=== PATIENT | male | born 1930 | race Caucasian/White ===

== ENCOUNTER 2016-08-09 14:30 | Observation (INO) | payer OTHER, MEDICAID ==
--- NOTE | 2016-08-09 14:38 | DR.GENAD ---
HPI - HPI Comment HPI Comment: Complaint of weakness and diarrhea. omset yesterday. recently hospitalized for PE in [place] put in rehab then went home. Lives alone. - Nurses notes reviewed Nurses Notes Review: Yes - Source History Provided: Patient - Mode of Arrival Mode of Arrival: EMS - Timing Onset of Chief Complaint: 08/08/16 - Duration Duration: Constant How lon Duration: Days - Location Location: generalized - Severity Severity: Moderate - Modifying Factors Worsens:: diarrhea PMH - PMH Past Medical History: Arthritis, CHF, Coronary Artery Disease, Dyslipidemia Past Surgical History: Yes Surgical History: CABG/Valve Surgery - Social History Do you use any recreational Drugs:: No ROS - Review of Systems Constitutional: No Symptoms Reported Eyes: No Symptoms Reported ENTM: No Symptoms Reported Respiratoy: No Symptoms Reported Cardiovascular: No Symptoms Reported Gastrointestinal/Abdominal: Diarrhea Genitourinary: No Symptoms Reported Neurological: Weakness Musculoskeletal: No Symptoms Reported Integumentary: No Symptoms Reported Hematologic/Lymphatic: No Symptoms Reported Endocrine: No Symptoms Reported Psychiatric: No Symptoms Reported PE - Vital Signs Vitals: Temperature 97.4 F Pulse Rate 118 Respiratory Rate 18 Blood Pressure 133/79 O2 Sat by Pulse Oximetry 94 - General Limitations: No Limitations General Appearance: Alert, In No Apparent Distress - Head Head Exam: Normal Inspection - Eyes Eye exam: EOMI. negative: Scleral Icterus, Conjunctival Injection - ENT ENT Exam: Mucous Membranes Dry External Ear Exam: Normal External Inspection Mouth Exam: Normal Inspection Throat Exam: Normal Inspection - Neck Neck Exam: Normal Inspection, Full ROM, Trachea Midline - Chest Chest Inspection: Normal Inspection - Respiratory Respiratory Exam: Normal Lung Sounds Bilat. negative: Accessory Muscle Use, Respiratory Distress Respiratory Exam: Bilateral Clear to Auscultation - Cardiovascular Cardiovascular Exam: Tachycardia - Abdominal Exam Abdominal Exam: Normal Inspection, Normal Bowel Sounds, Soft. negative: Distention, Tenderness, Guarding - Extremities Extremities Exam: Normal Inspection - Neurologic Neurological Exam: Alert, CN II-XII Intact - Psychiatric Psychiatric Exam: Depressed - Skin Skin Exam: Intact, Normal Color Course - Consultation Called: 18:00 Call Returned: 18:08 Consultation Comments: CASE DISCUSSED WITH DR. XIONG ADMIT FOR IVF AND POTASSIUM ROR - Labs Reviewed Result Diagrams: 08/09/16 15:10 08/09/16 15:10 Laboratory: WBC 8.9 X10^3/uL (3.6-10.0) 08/09/16 15:10 RBC 4.26 X10^6/uL (4.7-6.0) L 08/09/16 15:10 Hgb 12.8 g/dL (13.5-18.0) L 08/09/16 15:10 Hct 36.8 % (42.0-54.0) L 08/09/16 15:10 MCV 86.5 fL (80.0-100.0) 08/09/16 15:10 MCH 30.0 pg (27.0-34.0) 08/09/16 15:10 MCHC 34.7 g/dL (33.0-35.0) 08/09/16 15:10 RDW 17.8 % (11.6-16.5) H 08/09/16 15:10 Plt Count 327 X10^3/uL (150.0-450.0) 08/09/16 15:10 Plt Count Comment Adequate (ADEQUATE) 08/09/16 15:10 MPV 7.8 fL (7.4-11.0) 08/09/16 15:10 Neut % 77.1 % (42.0-75.0) H 08/09/16 15:10 Lymph % 14.7 % (21.0-51.0) L 08/09/16 15:10 [place] % 7.0 % (0.0-13.0) 08/09/16 15:10 Eos % 0.6 % (0.9-2.9) L 08/09/16 15:10 Baso % 0.6 % (0.2-1.0) 08/09/16 15:10 Neut # 6.9 x10^3/uL (2.2-4.8) H 08/09/16 15:10 Lymph # 1.3 X10^3/uL (1.3-2.9) 08/09/16 15:10 [place] # 0.6 x10^3/uL (0.3-0.8) 08/09/16 15:10 Eos # 0.1 x10^3/uL (0.0-0.2) 08/09/16 15:10 Baso # 0.1 X10^3/uL (0.0-0.1) 08/09/16 15:10 Absolute Nucleated RBC 0.0 /100WBC 08/09/16 15:10 Total Counted 100 08/09/16 15:10 Neutrophils % (Manual) 81 % (39-76) H 08/09/16 15:10 Band Neutrophils % 1 % (0-10) 08/09/16 15:10 Lymphocytes % (Manual) 12 % (13-43) L 08/09/16 15:10 Monocytes % (Manual) 4 % (4-9) 08/09/16 15:10 Eosinophils % (Manual) 1 % (0-6) 08/09/16 15:10 Basophils % (Manual) 1 % (0-1) 08/09/16 15:10 Plt Morphology Comment Normal (NORMAL) 08/09/16 15:10 RBC Morphology Abnormal (NORMAL) 08/09/16 15:10 Poikilocytosis 1+ A 08/09/16 15:10 Anisocytosis 1+ A 08/09/16 15:10 Crenated Cell 1+ A 08/09/16 15:10 Sodium 140 mmol/L (136-145) 08/09/16 15:10 Corrected Sodium 142 mmol/L (136-145) 08/09/16 15:10 Potassium 3.4 mmol/L (3.5-5.1) L 08/09/16 15:10 Chloride 99 mmol/L (98-107) 08/09/16 15:10 Carbon Dioxide 29.0 mmol/L (21-32) 08/09/16 15:10 BUN 18 mg/dL (7-18) 08/09/16 15:10 Creatinine 1.91 mg/dL (0.70-1.30) H 08/09/16 15:10 Est GFR (MDRD) Af Amer 43 (>60) L 08/09/16 15:10 Est GFR (MDRD) Non-Af 36 (>60) L 08/09/16 15:10 Glucose 182 mg/dL (65-99) H 08/09/16 15:10 Lactic Acid 2.4 mmol/L (0.4-2.0) H 08/09/16 15:45 Calcium 9.4 mg/dL (8.5-10.1) 08/09/16 15:10 Corrected Calcium 10.4 mg/dL (8.5-10.1) H 08/09/16 15:10 Total Bilirubin 0.70 mg/dL (0.2-1.0) 08/09/16 15:10 AST 33 Units/L (15-37) 08/09/16 15:10 ALT 45 Units/L (12-78) 08/09/16 15:10 Alkaline Phosphatase 174 Units/L (46-116) H 08/09/16 15:10 Total Protein 7.4 g/dL (6.4-8.2) 08/09/16 15:10 Albumin 2.8 g/dL (3.4-5.0) L 08/09/16 15:10 Globulin 4.6 g/dL (2.5-4.5) H 08/09/16 15:10 Albumin/Globulin Ratio 0.6 Ratio (1.1-2.1) L 08/09/16 15:10 Specimen Type Catherized urine 08/09/16 17:16 Urine Color Dark yellow (YELLOW) 08/09/16 17:16 Urine Appearance Clear (CLEAR) 08/09/16 17:16 Urine pH 6.0 (5.0 - 8.0) 08/09/16 17:16 Ur Specific [place] 1.010 (1.000-1.030) 08/09/16 17:16 Urine Protein 2+ (NEGATIVE) 08/09/16 17:16 Urine Glucose (UA) Negative (NEGATIVE) 08/09/16 17:16 Urine Ketones Negative (NEGATIVE) 08/09/16 17:16 Urine Occult Blood 1+ (NEGATIVE) 08/09/16 17:16 Urine Nitrite Negative (NEGATIVE) 08/09/16 17:16 Urine Bilirubin 1+ (NEGATIVE) 08/09/16 17:16 Urine Urobilinogen 1+ (NORMAL) 08/09/16 17:16 Ur Leukocyte Esterase 1+ (NEGATIVE) 08/09/16 17:16 Urine RBC 0-3 /HPF (NEGATIVE) 08/09/16 17:16 Urine WBC 0-2 /HPF (NEGATIVE) 08/09/16 17:16 Ur Squamous Epith Cells Rare /HPF (NEGATIVE) 08/09/16 17:16 Amorphous Sediment Trace /HPF (NEGATIVE) 08/09/16 17:16 Urine Bacteria Trace /HPF (NEGATIVE) 08/09/16 17:16 Urine Mucus Rare /HPF (NEGATIVE) 08/09/16 17:16 Ur Culture Indicated? No/not indicated 08/09/16 17:16 - XRAY XRAY Interpreted by: Radiologist XRAY Findings: cHEST: nad - EKG Rate: 106 [place]: Normal Rhythm: ST Block: None ST: Nonsp - Diagnosis Discharge Problem: Hypokalemia Diarrhea Qualifiers: Diarrhea type: unspecified type Qualified Code(s): R19.7 - Diarrhea, unspecified - Discharge Plan Condition: Stable - Follow ups/Referrals Follow ups/Referrals: KHOI WATERS [Primary Care Provider] - 3 days - Instructions
[2016-08-09] MEDS ORDERED: NS 500 ML IV 500 ML IV ONE (15:29)
[2016-08-09] MEDS ORDERED: NS 1000 ML 1,000 ML ONE (15:36)
[2016-08-09 15:41] LABS: BASOPHILS # (AUTO) 0.1 X10^3/uL (0.0-0.1); BASOPHILS % (AUTO) 0.6 % (0.2-1.0); EOSINOPHILS # (AUTO) 0.1 x10^3/uL (0.0-0.2); EOSINOPHILS % (AUTO) 0.6 % (0.9-2.9); HEMATOCRIT 36.8 % (42.0-54.0); HEMOGLOBIN 12.8 g/dL (13.5-18.0); LYMPHOCYTES # (AUTO) 1.3 X10^3/uL (1.3-2.9); LYMPHOCYTES % (AUTO) 14.7 % (21.0-51.0); MEAN CORPUSCULAR HGB CONC 34.7 g/dL (33.0-35.0); MEAN CORPUSCULAR VOLUME 86.5 fL (80.0-100.0); MEAN PLATELET VOLUME 7.8 fL (7.4-11.0); MONOCYTES # (AUTO) 0.6 x10^3/uL (0.3-0.8); NEUTROPHILS # (AUTO) 6.9 x10^3/uL (2.2-4.8); NEUTROPHILS % (AUTO) 77.1 % (42.0-75.0); PLATELET COUNT 327 X10^3/uL (150.0-450.0); RED BLOOD COUNT 4.26 X10^6/uL (4.7-6.0); RED CELL DISTRIBUTION WIDTH 17.8 % (11.6-16.5); WHITE BLOOD COUNT 8.9 X10^3/uL (3.6-10.0)
[2016-08-09 15:45] LABS: ALBUMIN 2.8 g/dL (3.4-5.0); CALCIUM 9.4 mg/dL (8.5-10.1); COR CA(FOR HYPOALB) 10.4 mg/dL (8.5-10.1); CREATININE 1.91 mg/dL (0.70-1.30); TOTAL PROTEIN 7.4 g/dL (6.4-8.2)
[2016-08-09 16:02] LABS: BAND NEUTROPHILS % 1 % (0-10); BASOPHILS % (MANUAL) 1 % (0-1); PLATELET MORPHOLOGY COMMENT NORMAL (NORMAL)
[2016-08-09 16:03] LABS: ANISOCYTOSIS 1+; CRENATED RBC 1+; POIKILOCYTOSIS 1+
[2016-08-09] MEDS ORDERED: MICRO K EXTEN CAP 10 MEQ PO ONE ×2 (16:17→17:25)
--- NOTE | 2016-08-09 16:25 | RAD ---
HISTORY: Weakness and shortness of breath Study: Portable chest Comparison: December 2011 Findings: The trachea is midline. The cardiac silhouette is normal status post old sternotomy. The aorta is m ildly tortuous.. The lungs are clear without focal infiltrate or effusion. The bony thorax is unre markable. IMPRESSION: 1. No acute cardiopulmonary disease. Reported By:
[2016-08-09] MEDS ORDERED: POTASSIUM CHLORIDE LIQ 20 MEQ UDC ONE (17:28)
[2016-08-09] MEDS ORDERED: POTASSIUM CHLORIDE LIQ 20 MEQ UDC PO ONE (17:29)
[2016-08-09 17:33] LABS: BILIRUBIN,URINE 1+ (NEGATIVE); BLOOD/HEMOGLOBIN,URINE 1+ (NEGATIVE); GLUCOSE, URINE NEGATIVE (NEGATIVE); KETONES,URINE NEGATIVE (NEGATIVE); LEUKOCYTE ESTERASE ,URINE 1+ (NEGATIVE); NITRITES,URINE NEGATIVE (NEGATIVE); PROTEIN,URINE 2+ (NEGATIVE); UROBILINOGEN,URINE 1+ (NORMAL)
[2016-08-09 17:42] LABS: AMORPHOUS SEDIMENT,UR TRACE /HPF (NEGATIVE); APPEARANCE,URINE CLEAR (CLEAR); BACTERIA,URINE TRACE /HPF (NEGATIVE); COLOR,URINE DARK YELLOW (YELLOW); MUCUS,URINE RARE /HPF (NEGATIVE); RBC,URINE 0-3 /HPF (NEGATIVE); SQUAMOUS EPITHELIAL CELL,UR RARE /HPF (NEGATIVE)
[2016-08-09] MEDS ORDERED: ZOFRAN INJ 4 MG VIAL IVP PRN (18:19)
[2016-08-09] MEDS: NS 1000 ML 1,000 ML IV SCH (20:13)
[2016-08-09] MEDS ORDERED: [UNRECOGNIZED DRUG - OTHER] PO SCH (21:00)
[2016-08-09] MEDS ORDERED: [UNRECOGNIZED DRUG - OTHER] PO SCH (21:00)
[2016-08-09] MEDS: PREDNISONE TAB 5 MG PO SCH (21:20)
[2016-08-09] MEDS: ATIVAN TAB 0.5 MG PO SCH (21:21)
[2016-08-09] MEDS: ZYLOPRIM PO SCH (21:21)
[2016-08-09 21:57] VITALS: BMI 32.1
[2016-08-09] MEDS ORDERED: BUTT CREAM (COMPOUND) TOP PRN (23:39)
[2016-08-10] MEDS: ATIVAN TAB 0.5 MG PO SCH ×3 (05:39→21:44)
[2016-08-10 06:29] LABS: ALBUMIN 2.3 g/dL (3.4-5.0); CALCIUM 8.5 mg/dL (8.5-10.1); CARBON DIOXIDE 29.1 mmol/L (21-32); COR CA(FOR HYPOALB) 9.9 mg/dL (8.5-10.1); CREATININE 1.52 mg/dL (0.70-1.30); TOTAL PROTEIN 6.2 g/dL (6.4-8.2)
[2016-08-10] MEDS: NS 1000 ML 1,000 ML IV SCH ×2 (10:07→21:43)
[2016-08-10] MEDS: PREDNISONE TAB 5 MG PO SCH ×2 (10:08→21:44)
[2016-08-10] MEDS: ASPIRIN 81 MG CHEWTAB PO SCH ×2 (10:08→16:58)
[2016-08-10] MEDS: PRILOSEC PO SCH (10:08)
[2016-08-10] MEDS: ZYLOPRIM PO SCH ×2 (10:08→21:44)
[2016-08-10] MEDS: PATIENT'S HOME MEDICATION RESPIRATORY (Oxybutynin Chloride [Ditropan Xl] 10 MG) PO SCH (10:09)
[2016-08-10] MEDS: TOPROL XL PO SCH (16:21)
[2016-08-10] MEDS: ZANTAC PO SCH (16:21)
[2016-08-10] MEDS: K-DUR TAB 20 MEQ PO SCH (16:21)
[2016-08-10] MEDS: COUMADIN TAB 5 MG PO SCH (17:48)
[2016-08-10] MEDS: REQUIP PO SCH (21:44)
[2016-08-10] MEDS: NORCO 5/325 MG TAB PO PRN (21:44)
[2016-08-11] MEDS: ATIVAN TAB 0.5 MG PO SCH ×3 (05:34→22:03)
[2016-08-11] MEDS: NS 1000 ML 1,000 ML IV SCH ×2 (05:34→14:48)
[2016-08-11 06:21] LABS: BASOPHILS % (AUTO) 0.7 % (0.2-1.0); EOSINOPHILS # (AUTO) 0.1 x10^3/uL (0.0-0.2); EOSINOPHILS % (AUTO) 0.8 % (0.9-2.9); HEMATOCRIT 29.4 % (42.0-54.0); HEMOGLOBIN 10.1 g/dL (13.5-18.0); LYMPHOCYTES # (AUTO) 0.9 X10^3/uL (1.3-2.9); LYMPHOCYTES % (AUTO) 13.5 % (21.0-51.0); MEAN CORPUSCULAR HEMOGLOBIN 29.9 pg (27.0-34.0); MEAN CORPUSCULAR HGB CONC 34.3 g/dL (33.0-35.0); MEAN CORPUSCULAR VOLUME 87.3 fL (80.0-100.0); MEAN PLATELET VOLUME 8.1 fL (7.4-11.0); MONOCYTES # (AUTO) 0.5 x10^3/uL (0.3-0.8); MONOCYTES % (AUTO) 7.7 % (0.0-13.0); NEUTROPHILS # (AUTO) 5.2 x10^3/uL (2.2-4.8); NEUTROPHILS % (AUTO) 77.3 % (42.0-75.0); PLATELET COUNT 216 X10^3/uL (150.0-450.0); RED BLOOD COUNT 3.36 X10^6/uL (4.7-6.0); RED CELL DISTRIBUTION WIDTH 17.4 % (11.6-16.5); WHITE BLOOD COUNT 6.7 X10^3/uL (3.6-10.0)
[2016-08-11 06:34] LABS: ALANINE AMINOTRANSFERASE 31 Units/L (12-78); ALBUMIN 2.1 g/dL (3.4-5.0); ALKALINE PHOSPHATASE 121 Units/L (46-116); ASPARTATE AMINO TRANSFERASE 25 Units/L (15-37); BLOOD UREA NITROGEN 13 mg/dL (7-18); CARBON DIOXIDE 28.6 mmol/L (21-32); CHLORIDE 109 mmol/L (98-107); COR CA(FOR HYPOALB) 9.5 mg/dL (8.5-10.1); COR NA(FOR HYPERGLY) 145 mmol/L (136-145); CREATININE 1.25 mg/dL (0.70-1.30); GLUCOSE 139 mg/dL (65-99); SODIUM 144 mmol/L (136-145); TOTAL PROTEIN 5.1 g/dL (6.4-8.2); eGFR BLACK RACES > 60 (>60); eGFR NON BLACK RACES 58 (>60)
[2016-08-11] MEDS: ZANTAC PO SCH (09:37)
[2016-08-11] MEDS: K-DUR TAB 20 MEQ PO SCH (09:38)
[2016-08-11] MEDS: PREDNISONE TAB 5 MG PO SCH ×2 (09:38→22:03)
[2016-08-11] MEDS: TOPROL XL PO SCH (09:38)
[2016-08-11] MEDS: COUMADIN TAB 5 MG PO SCH (09:38)
[2016-08-11] MEDS: ZYLOPRIM PO SCH ×2 (09:38→22:02)
[2016-08-11] MEDS: PRILOSEC PO SCH (09:38)
[2016-08-11] MEDS: ASPIRIN 81 MG CHEWTAB PO SCH ×2 (09:38)
[2016-08-11] MEDS: PATIENT'S HOME MEDICATION RESPIRATORY (Oxybutynin Chloride [Ditropan Xl] 10 MG) PO SCH (09:39)
[2016-08-11] MEDS: REQUIP PO SCH (22:02)
[2016-08-11] MEDS: NORCO 5/325 MG TAB PO PRN (22:02)
[2016-08-12] MEDS: ATIVAN TAB 0.5 MG PO SCH ×2 (05:45→14:33)
[2016-08-12] MEDS: NS 1000 ML 1,000 ML IV SCH ×2 (05:45→14:45)
[2016-08-12 06:38] LABS: BLOOD UREA NITROGEN 15 mg/dL (7-18); CALCIUM 8.6 mg/dL (8.5-10.1); CARBON DIOXIDE 24.8 mmol/L (21-32); CHLORIDE 109 mmol/L (98-107); COR NA(FOR HYPERGLY) 143 mmol/L (136-145); GLUCOSE 115 mg/dL (65-99); SODIUM 143 mmol/L (136-145); eGFR BLACK RACES > 60 (>60); eGFR NON BLACK RACES > 60 (>60)
[2016-08-12 07:16] LABS: BASOPHILS % (AUTO) 0.5 % (0.2-1.0); EOSINOPHILS # (AUTO) 0.2 x10^3/uL (0.0-0.2); EOSINOPHILS % (AUTO) 2.4 % (0.9-2.9); HEMATOCRIT 32.1 % (42.0-54.0); HEMOGLOBIN 10.7 g/dL (13.5-18.0); LYMPHOCYTES # (AUTO) 1.2 X10^3/uL (1.3-2.9); LYMPHOCYTES % (AUTO) 16.1 % (21.0-51.0); MEAN CORPUSCULAR HEMOGLOBIN 29.6 pg (27.0-34.0); MEAN CORPUSCULAR HGB CONC 33.3 g/dL (33.0-35.0); MEAN PLATELET VOLUME 8.1 fL (7.4-11.0); MONOCYTES # (AUTO) 0.6 x10^3/uL (0.3-0.8); MONOCYTES % (AUTO) 7.4 % (0.0-13.0); NEUTROPHILS # (AUTO) 5.5 x10^3/uL (2.2-4.8); NEUTROPHILS % (AUTO) 73.6 % (42.0-75.0); PLATELET COUNT 215 X10^3/uL (150.0-450.0); RED CELL DISTRIBUTION WIDTH 17.1 % (11.6-16.5); WHITE BLOOD COUNT 7.4 X10^3/uL (3.6-10.0)
[2016-08-12 08:08] LABS: PLATELET MORPHOLOGY COMMENT NORMAL (NORMAL)
[2016-08-12] MEDS: K-DUR TAB 20 MEQ PO SCH (09:32)
[2016-08-12] MEDS: ASPIRIN 81 MG CHEWTAB PO SCH ×2 (09:33→09:37)
[2016-08-12] MEDS: TOPROL XL PO SCH (09:33)
[2016-08-12] MEDS: PRILOSEC PO SCH (09:33)
[2016-08-12] MEDS: COUMADIN TAB 5 MG PO SCH (09:33)
[2016-08-12] MEDS: ZYLOPRIM PO SCH (09:33)
[2016-08-12] MEDS: ZANTAC PO SCH (09:33)
[2016-08-12] MEDS: PREDNISONE TAB 5 MG PO SCH (09:33)
[2016-08-12] MEDS: PATIENT'S HOME MEDICATION RESPIRATORY (Oxybutynin Chloride [Ditropan Xl] 10 MG) PO SCH (09:37)
[2016-08-12 15:37] VITALS: BP 166/76
== END 2016-08-12 16:25 | disposition home or self-care (01) ==
LOC: ER 14:54 → MED/SURG 18:46
PROVIDERS: ADMIT Internal Medicine; ATTEND Internal Medicine
DX: R19.7 Diarrhea, unspecified (principal); E87.6 Hypokalemia; E86.0 Dehydration; R53.1 Weakness; M13.89 Other specified arthritis, multiple sites; I50.9 Heart failure, unspecified; I25.10 Atherosclerotic heart disease of native coronary artery without angina pectoris; E78.2 Mixed hyperlipidemia; R06.02 Shortness of breath; R94.31 Abnormal electrocardiogram [ECG] [EKG]; D64.89 Other specified anemias; R79.1 Abnormal coagulation profile; R94.4 Abnormal results of kidney function studies; R73.09 Other abnormal glucose; A04.7 Enterocolitis due to Clostridium difficile; R26.89 Other abnormalities of gait and mobility
CPT/HCPCS: 36415; 51702; 71010; 80048; 80053; 81001; 83605; 85025; 85610; 87205; 87493; 93005; 93010; 94760; 96365; 96367; 97535; 99284; A4216; A4222; G8978; G8979; G8987; G8988; G0378; J7506

== ENCOUNTER 2016-08-14 13:32 | Emergency (ER) | payer OTHER, MEDICAID ==
[2016-08-14 14:18] LABS: BILIRUBIN,URINE NEGATIVE (NEGATIVE); BLOOD/HEMOGLOBIN,URINE 5+ (NEGATIVE); GLUCOSE, URINE NEGATIVE (NEGATIVE); KETONES,URINE NEGATIVE (NEGATIVE); LEUKOCYTE ESTERASE ,URINE 2+ (NEGATIVE); NITRITES,URINE NEGATIVE (NEGATIVE); PROTEIN,URINE 4+ (NEGATIVE); UROBILINOGEN,URINE NORMAL (NORMAL)
[2016-08-14 14:28] LABS: APPEARANCE,URINE CLOUDY (CLEAR); BACTERIA,URINE 4+ /HPF (NEGATIVE); COLOR,URINE RED (YELLOW); RBC,URINE TNTC /HPF (NEGATIVE); SQUAMOUS EPITHELIAL CELL,UR RARE /HPF (NEGATIVE)
--- NOTE | 2016-08-14 14:45 | DR.UPM ---
HPI - Time Seen Time seen: 14:35 - PCP Primary Care Physician: JUAN - Complaint Chief Complaint Doctors Comments: Patient reports that he has been trying to get into a alf for some time now and has not had any success. His son has tried on several occassion he reports but has not been accepted. He went to [facility] with an attempt to get in a nursing but has no personal physician and he was diagnosed and treated for hemorrhagic cycstitis. He states that he has been treated for prostate cancer with radiation and needle injection. Chief Complaint:: PT. STATES HE IS HAVING A PROBLEM WITH CONSTIPATION AND HAS NOT HAD A BOWEL MOVEMENT SINCE YESTERDAY. PT. ALSO C/O URINARY RETENTION. PT. WAS SEEN IN [place] ER LAST NIGHT AND WAS D/C HOME. - Source History Provided: Patient, EMS - Mode of Arrival Mode of Arrival: EMS - Timing Onset of Chief Complaint: 08/13/16 PMH - PMH Past Medical History: Yes Past Medical History: Arthritis, CHF, Coronary Artery Disease, Dyslipidemia Past Medical History Comment: PROSTATE CANCER Past Surgical History: Yes Surgical History: Appendectomy, CABG/Valve Surgery, Cholecystectomy - Family History History of Family Medical Conditions: No - Social History Does patient currently use any type of tobacco product: No Have you used tobacco products in the last 12 months: No Type of Tobacco Use: None Does any household member use tobacco: No Alcohol Use: None Do you use any recreational Drugs:: No Lives With: Alone Lives Where: Home - infectious screening In the last 2 months have you had wt loss of >10#?: NO Have you had fever, night sweats or hemotysis?: No Have you traveled outside the country in the last 6 months?: No Isolation: Standard ROS - Review of Systems Constitutional: No Symptoms Reported Eyes: No Symptoms Reported ENTM: No Symptoms Reported Respiratoy: No Symptoms Reported Cardiovascular: No Symptoms Reported Gastrointestinal/Abdominal: No Symptoms Reported Genitourinary: See HPI, Hematuria Neurological: No Symptoms Reported Musculoskeletal: No Symptoms Reported Integumentary: No Symptoms Reported Hematologic/Lymphatic: No Symptoms Reported Endocrine: No Symptoms Reported Psychiatric: No Symptoms Reported All Other Systems: Reviewed and Negative PE - Vital Signs Vitals: Temperature 97.3 F Pulse Rate 112 Respiratory Rate 22 Blood Pressure [Left Arm] 166/76 Blood Pressure [Right Arm] 140/66 Blood Pressure 185/95 O2 Sat by Pulse Oximetry 96 Course - Reevaluation 1st: Unchanged ROR - Labs Reviewed Result Diagrams: 08/14/16 15:15 08/14/16 15:15 Laboratory: WBC 12.3 X10^3/uL (3.6-10.0) H 08/14/16 15:15 RBC 4.26 X10^6/uL (4.7-6.0) L 08/14/16 15:15 Hgb 12.4 g/dL (13.5-18.0) L 08/14/16 15:15 Hct 37.3 % (42.0-54.0) L 08/14/16 15:15 MCV 87.5 fL (80.0-100.0) 08/14/16 15:15 MCH 29.2 pg (27.0-34.0) 08/14/16 15:15 MCHC 33.4 g/dL (33.0-35.0) 08/14/16 15:15 RDW 17.9 % (11.6-16.5) H 08/14/16 15:15 Plt Count 226 X10^3/uL (150.0-450.0) 08/14/16 15:15 Plt Count Comment Adequate (ADEQUATE) 08/14/16 15:15 MPV 7.8 fL (7.4-11.0) 08/14/16 15:15 Neut % 80.1 % (42.0-75.0) H 08/14/16 15:15 Lymph % 10.3 % (21.0-51.0) L 08/14/16 15:15 [place] % 7.7 % (0.0-13.0) 08/14/16 15:15 Eos % 0.9 % (0.9-2.9) 08/14/16 15:15 Baso % 1.0 % (0.2-1.0) 08/14/16 15:15 Neut # 9.8 x10^3/uL (2.2-4.8) H 08/14/16 15:15 Lymph # 1.3 X10^3/uL (1.3-2.9) 08/14/16 15:15 [place] # 0.9 x10^3/uL (0.3-0.8) H 08/14/16 15:15 Eos # 0.1 x10^3/uL (0.0-0.2) 08/14/16 15:15 Baso # 0.1 X10^3/uL (0.0-0.1) 08/14/16 15:15 Absolute Nucleated RBC 0.1 /100WBC 08/14/16 15:15 Total Counted 100 08/14/16 15:15 Neutrophils % (Manual) 74 % (39-76) 08/14/16 15:15 Band Neutrophils % 5 % (0-10) 08/14/16 15:15 Lymphocytes % (Manual) 17 % (13-43) 08/14/16 15:15 Monocytes % (Manual) 3 % (4-9) L 08/14/16 15:15 Eosinophils % (Manual) 1 % (0-6) 08/14/16 15:15 Plt Morphology Comment Normal (NORMAL) 08/14/16 15:15 RBC Morphology Abnormal (NORMAL) 08/14/16 15:15 Hypochromasia Slight A 08/14/16 15:15 Poikilocytosis Slight A 08/14/16 15:15 Anisocytosis Slight A 08/14/16 15:15 Sodium 142 mmol/L (136-145) 08/14/16 15:15 Corrected Sodium 142 mmol/L (136-145) 08/14/16 15:15 Potassium 4.0 mmol/L (3.5-5.1) 08/14/16 15:15 Chloride 105 mmol/L (98-107) 08/14/16 15:15 Carbon Dioxide 27.5 mmol/L (21-32) 08/14/16 15:15 BUN 25 mg/dL (7-18) H 08/14/16 15:15 Creatinine 1.61 mg/dL (0.70-1.30) H 08/14/16 15:15 Est GFR (MDRD) Af Amer 53 (>60) L 08/14/16 15:15 Est GFR (MDRD) Non-Af 43 (>60) L 08/14/16 15:15 Glucose 120 mg/dL (65-99) H 08/14/16 15:15 Calcium 9.0 mg/dL (8.5-10.1) 08/14/16 15:15 Corrected Calcium 9.9 mg/dL (8.5-10.1) 08/14/16 15:15 Total Bilirubin 0.70 mg/dL (0.2-1.0) 08/14/16 15:15 AST 30 Units/L (15-37) 08/14/16 15:15 ALT 41 Units/L (12-78) 08/14/16 15:15 Alkaline Phosphatase 158 Units/L (46-116) H 08/14/16 15:15 Total Protein 7.1 g/dL (6.4-8.2) 08/14/16 15:15 Albumin 2.9 g/dL (3.4-5.0) L 08/14/16 15:15 Globulin 4.2 g/dL (2.5-4.5) 08/14/16 15:15 Albumin/Globulin Ratio 0.7 Ratio (1.1-2.1) L 08/14/16 15:15 Specimen Type Clean catch urine 08/14/16 13:57 Urine Color Red (YELLOW) 08/14/16 13:57 Urine Appearance Cloudy (CLEAR) 08/14/16 13:57 Urine pH 7.0 (5.0 - 8.0) 08/14/16 13:57 Ur Specific [place] 1.010 (1.000-1.030) 08/14/16 13:57 Urine Protein 4+ (NEGATIVE) 08/14/16 13:57 Urine Glucose (UA) Negative (NEGATIVE) 08/14/16 13:57 Urine Ketones Negative (NEGATIVE) 08/14/16 13:57 Urine Occult Blood 5+ (NEGATIVE) 08/14/16 13:57 Urine Nitrite Negative (NEGATIVE) 08/14/16 13:57 Urine Bilirubin Negative (NEGATIVE) 08/14/16 13:57 Urine Urobilinogen Normal (NORMAL) 08/14/16 13:57 Ur Leukocyte Esterase 2+ (NEGATIVE) 08/14/16 13:57 Urine RBC Tntc /HPF (NEGATIVE) 08/14/16 13:57 Urine WBC 3-5 /HPF (NEGATIVE) 08/14/16 13:57 Ur Squamous Epith Cells Rare /HPF (NEGATIVE) 08/14/16 13:57 Urine Bacteria 4+ /HPF (NEGATIVE) 08/14/16 13:57 Ur Culture Indicated? Yes/culture set up 08/14/16 13:57 - XRAY XRAY Interpreted by: Radiologist (No acute cardiopulmonary disease.) - Diagnosis Discharge Problem: Hemorrhagic cystitis UTI (urinary tract infection) Qualifiers: Urinary tract infection type: acute cystitis Hematuria presence: with hematuria Qualified Code(s): N30.01 - Acute cystitis with hematuria - Discharge Plan Condition: Stable - Follow ups/Referrals Follow ups/Referrals: NATHALIE MARTINEZ [Primary Care Provider] - 3 days - Instructions
[2016-08-14] MEDS: NS 1000 ML 1,000 ML IV SCH (15:09)
--- NOTE | 2016-08-14 15:32 | RAD ---
HISTORY: Constipation and inability to void Study: Portable chest Comparison: August 09, 2016 Findings: The trachea is midline. The cardiac silhouette is prominent status post coronary artery bypass marni ting surgery. The aorta is tortuous.. The lungs are clear without focal infiltrate or effusion. Th e bony thorax is unremarkable. IMPRESSION: 1. No acute cardiopulmonary disease. Reported By:
[2016-08-14 15:33] LABS: BASOPHILS # (AUTO) 0.1 X10^3/uL (0.0-0.1); EOSINOPHILS # (AUTO) 0.1 x10^3/uL (0.0-0.2); EOSINOPHILS % (AUTO) 0.9 % (0.9-2.9); HEMATOCRIT 37.3 % (42.0-54.0); HEMOGLOBIN 12.4 g/dL (13.5-18.0); LYMPHOCYTES # (AUTO) 1.3 X10^3/uL (1.3-2.9); LYMPHOCYTES % (AUTO) 10.3 % (21.0-51.0); MEAN CORPUSCULAR HEMOGLOBIN 29.2 pg (27.0-34.0); MEAN CORPUSCULAR HGB CONC 33.4 g/dL (33.0-35.0); MEAN CORPUSCULAR VOLUME 87.5 fL (80.0-100.0); MEAN PLATELET VOLUME 7.8 fL (7.4-11.0); MONOCYTES # (AUTO) 0.9 x10^3/uL (0.3-0.8); MONOCYTES % (AUTO) 7.7 % (0.0-13.0); NEUTROPHILS # (AUTO) 9.8 x10^3/uL (2.2-4.8); NEUTROPHILS % (AUTO) 80.1 % (42.0-75.0); PLATELET COUNT 226 X10^3/uL (150.0-450.0); RED BLOOD COUNT 4.26 X10^6/uL (4.7-6.0); RED CELL DISTRIBUTION WIDTH 17.9 % (11.6-16.5); WHITE BLOOD COUNT 12.3 X10^3/uL (3.6-10.0)
[2016-08-14 15:47] LABS: ALBUMIN 2.9 g/dL (3.4-5.0); CARBON DIOXIDE 27.5 mmol/L (21-32); COR CA(FOR HYPOALB) 9.9 mg/dL (8.5-10.1); CREATININE 1.61 mg/dL (0.70-1.30); TOTAL PROTEIN 7.1 g/dL (6.4-8.2)
[2016-08-14 16:02] LABS: BAND NEUTROPHILS % 5 % (0-10)
[2016-08-14 16:03] LABS: PLATELET MORPHOLOGY COMMENT NORMAL (NORMAL)
[2016-08-14 16:04] LABS: ANISOCYTOSIS SLIGHT; HYPOCHROMASIA SLIGHT; POIKILOCYTOSIS SLIGHT
[2016-08-14] MEDS ORDERED: TYLENOL 500 MG TAB EXTRA STRENGTH PO PRN (17:48)
[2016-08-14] MEDS ORDERED: GENTAMICIN INJ 80 MG in NS 100 ML IV 100 ML IV ONE (17:48)
[2016-08-14] MEDS ORDERED: NS 1000 ML 1,000 ML IV SCH (18:00)
[2016-08-14] MEDS ORDERED: ZANTAC PO SCH (18:00)
[2016-08-14] MEDS ORDERED: CATAPRES TAB 0.1 MG ONE (18:18)
[2016-08-14] MEDS ORDERED: CATAPRES TAB 0.1 MG PO ONE (18:19)
[2016-08-14] MEDS ORDERED: GENTAMICIN INJ ONE (19:56)
[2016-08-14] MEDS ORDERED: NS 100 ML IV 100 ML IV ONE (19:56)
[2016-08-14] MEDS ORDERED: BUTT CREAM (COMPOUND) TOP PRN (20:00)
[2016-08-14] MEDS: REQUIP PO SCH (20:11)
[2016-08-14] MEDS: TOPROL XL PO SCH (20:11)
[2016-08-14] MEDS ORDERED: BUTT CREAM (COMPOUND) ONE (20:39)
[2016-08-15 05:24] VITALS: BMI 32.1
[2016-08-15 06:38] LABS: BASOPHILS # (AUTO) 0.1 X10^3/uL (0.0-0.1); BASOPHILS % (AUTO) 0.6 % (0.2-1.0); EOSINOPHILS # (AUTO) 0.1 x10^3/uL (0.0-0.2); EOSINOPHILS % (AUTO) 1.6 % (0.9-2.9); HEMATOCRIT 31.2 % (42.0-54.0); HEMOGLOBIN 10.6 g/dL (13.5-18.0); LYMPHOCYTES # (AUTO) 1.4 X10^3/uL (1.3-2.9); LYMPHOCYTES % (AUTO) 15.9 % (21.0-51.0); MEAN CORPUSCULAR HEMOGLOBIN 29.7 pg (27.0-34.0); MEAN CORPUSCULAR HGB CONC 33.9 g/dL (33.0-35.0); MEAN CORPUSCULAR VOLUME 87.6 fL (80.0-100.0); MEAN PLATELET VOLUME 8.1 fL (7.4-11.0); MONOCYTES # (AUTO) 0.8 x10^3/uL (0.3-0.8); MONOCYTES % (AUTO) 9.2 % (0.0-13.0); NEUTROPHILS # (AUTO) 6.3 x10^3/uL (2.2-4.8); NEUTROPHILS % (AUTO) 72.7 % (42.0-75.0); PLATELET COUNT 185 X10^3/uL (150.0-450.0); RED BLOOD COUNT 3.56 X10^6/uL (4.7-6.0); RED CELL DISTRIBUTION WIDTH 17.7 % (11.6-16.5); WHITE BLOOD COUNT 8.7 X10^3/uL (3.6-10.0)
[2016-08-15 09:16] LABS: ALANINE AMINOTRANSFERASE 38 Units/L (12-78); ALBUMIN 2.4 g/dL (3.4-5.0); ALKALINE PHOSPHATASE 135 Units/L (46-116); ASPARTATE AMINO TRANSFERASE 36 Units/L (15-37); BLOOD UREA NITROGEN 19 mg/dL (7-18); CARBON DIOXIDE 23.9 mmol/L (21-32); CHLORIDE 107 mmol/L (98-107); COR CA(FOR HYPOALB) 9.3 mg/dL (8.5-10.1); CREATININE 1.24 mg/dL (0.70-1.30); GLUCOSE 101 mg/dL (65-99); SODIUM 142 mmol/L (136-145); TOTAL PROTEIN 5.3 g/dL (6.4-8.2); eGFR BLACK RACES > 60 (>60); eGFR NON BLACK RACES 59 (>60)
[2016-08-15] MEDS: COUMADIN TAB 5 MG PO SCH (09:51)
[2016-08-15] MEDS: LASIX PO SCH (09:58)
[2016-08-15] MEDS: TOPROL XL PO SCH (09:58)
[2016-08-15] MEDS: K-DUR TAB 20 MEQ PO SCH (09:58)
[2016-08-15] MEDS: AMPICILLIN VIAL 1 GM 1 GM in NS 50 ML IV + SPIKE MINIBAG* 50 ML IV SCH ×3 (10:10→20:35)
[2016-08-15] MEDS: MORPHINE SULFATE INJ 2 MG IVP PRN (10:11)
--- NOTE | 2016-08-15 13:42 | DR.H&P ---
H&P - History & Physical for Day of: H&P Date: 08/14/16 - Chief Complaint Chief Complaint: CONSTIPATION, URINARY RETENTION AND FREQUENCY - Allergies Allergies/Adverse Reactions: Allergies Allergy/AdvReac Type Severity Reaction Status Date / Time No Known Drug Allergy Allergy Unverified 12/12/11 22:31 - History of Present Illness History of Present Illness: THIS IS AN 86 YEAR OLD MALE, WHO HAS NO PCP. HE PRESENTS TO THE EMERGENCY ROOM WITH COMPLAINTS OF CONSTIPATION, URINARY RETENTION, AND URINARY FREQUENCY. PATIENT ALSO REPORTS WATERY DIARRHEA WITH GENERALIZED WEAKNESS. PATIENT STATES HE WENT TO [facility] LAST NIGHT AND WAS TREATED FOR HEMORRHAGIC CYSTITIS AND SENT HOME. PATIENT REPORTS SYMPTOMS HAVE NOT IMPROVED. PATIENT IS SEEKING HALFWAY PLACEMENT DUE TO INABILITY TO CARE FOR HIMSELF AT HOME. LABS OBTAINED. CBC WNL EXCEPT: WBC 12.3 , H/H 12.4/37.3. CMP WNL EXCEPT: BUN/CREAT 25/1.61, GFR 43, GLUCOSE 120, ALK PHOS 158, ALBUMIN 2.9. URINALYSIS ABNORMALS: PROTEIN 4+, OCCULT BLOOD 5+, LEUKOCYTE ESTERASE 2+, RBC TNTC, WBC 3-5, BACTERIA 4+; CULTURE PENDING. PATIENT 'S BLOOD PRESSURE WAS ELEVATED ON ARRIVAL, 185/95, PULSE 112 AND HE RECEIVED CLONIDINE 0.1MG PO. BLOOD PRESSURE IMPROVED TO 134/59, PULSE 100. HE ALSO RECEIVED GENTAMICIN IV IN THE ER ALONG WITH IV FLUIDS. WE WILL ADMIT PATIENT FOR FURTHER TREATMENT AND EVALUATION. WE WILL OBTAIN STOOL STUDIES AND CONTINUE IV FLUIDS AND AMPICILLIN IV. WE WILL FOLLOW UP IN AM WITH LABS. - Past Medical History Past Medical History: Angina, Anxiety, Arthritis, CHF, Coronary Artery Disease, Depression, Dyslipidemia, Gout, SD Additional Medical History: Cataracts, Ear Infections, TIA, Pulmonary Embolism, Hiatal Hernia, Gall Bladder Disease, Constipation, Diarrhea, Muscle Weakness, Back Pain, Prostate Cancer and Treatment - Past Surgical History Surgical History: Appendectomy, CABG/Valve Surgery, Cholecystectomy Additional Surgical History: Quadruple Bypass - Family History Family Medical History: denies: Diabetes Mellitus, Cancer, [place], Coronary Artery Disease, Heart Failure, Sudden Cardiac , Hypertension - Social History Does patient currently use any type of tobacco product: No Have you used tobacco products in the last 12 months: No Type of Tobacco Use: Cigars How many years tobacco product used: 30 Does any household member use tobacco: No Alcohol Use: None Drug Use: None - Medications Home Medications: Nitrofurantoin Monohyd Macro [Macrobid] 1 cap PO DAILY 08/14/16 [History Confirmed 08/14/16] - Review of Systems Constitutional: Weakness, Malaise Eyes: No Symptoms Reported. denies: Pain, Vision Change, Conjunctivae Inflammation, Eyelid Inflammation, Redness ENT: No Symptoms Reported. denies: Ear Pain, Ear Discharge, Nose Pain, Nose Discharge, Nose Congestion, Mouth Pain, Mouth Swelling, Throat Pain, Throat Swelling Respiratory: No Symptoms Reported. denies: Cough, Shortness of Breath, Hemoptysis, SOB with Excertion, Pleuritic Pain, Sputum, Wheezing Cardiovascular: No Symptoms Reported. denies: Chest Pain, Palpitations, Orthopnea, Paroxysmal Noc. Dyspnea, Edema, Light Headedness Gastrointestinal: Diarrhea Genitourinary: Frequency, Hematuria Musculoskeletal: No Symptoms Reported. denies: Shoulder Pain, Arm Pain, Back Pain, Hand Pain, Leg Pain, Foot Pain, Neck Pain Skin: No Symptoms Reported. denies: Rash, Lesions, Jaundice, Bruising, Wound, Ecchymosis Neurological: No Symptoms Reported. denies: Weakness, Numbness, Incoordination , Change in Speech, Confusion, Seizures - Physical Exam Vital Signs: Temperature 99.2 F Pulse Rate [Left] 94 Respiratory Rate 20 Blood Pressure [Right Arm] 110/58 O2 Sat by Pulse Oximetry 96 Oriented: Normal, Time, Person, Place Eyes: Normal. negative: Blurred Vision, Diplopia, Discharge, Pain, Redness, Photophobia Ear: Normal. negative: Swelling, Ecchymosis, Hemotypanum, Abrasion, Laceration Nose: Normal. negative: Injected, Discharge, Blood Throat: Dry. negative: Tonsillar Hypertrophy, Red, Exudate Respiratory: Clear Throughout Cardiovascular: Normal. negative: Murmur, Edema : Dysuria, Hematuria, Frequency, Discharge. negative: Testicular Pain Auscultation: Bowel Sounds: Increased. negative: Bruit Palpation: Normal. negative: Spleen Enlarged, Liver Enlarged, Mass Pulsatile Tenderness: Diffuse, Mild. negative: Rebound, Guarding, Rigidity Skin: Decreased [place]urg[place]. negative: Diaphoresis, Wound, Bruising, Ecchymosis Musculoskeletal: Instability Psychiatric: Normal Mood Description: Calm, Appropriate Affect: Normal Speech Pattern: Clear, Appropriate - Assessment/Plan (1) Hemorrhagic cystitis Status: Acute Plan: ADMIT PATIENT, START AMPICILLIN, IV FLUIDS, INSERT CASTRO CATH DUE TO URINARY RETENTION, MONITOR OUTPUT. (2) UTI (urinary tract infection) Qualifiers: Urinary tract infection type: acute cystitis Hematuria presence: with hematuria Indwelling urinary catheter type: I Encounter type: E Qualified Code(s): N30.01 - Acute cystitis with hematuria Status: Acute Plan: ABOVE. (3) Diarrhea Qualifiers: Diarrhea type: presumed infectious Qualified Code(s): A09 - Infectious gastroenteritis and colitis, unspecified Status: Acute Plan: OBTAIN STOOL STUDIES, CONTINUE IV FLUIDS, MONITOR. (4) CAD (coronary artery disease) Qualifiers: Coronary Disease-Associated Artery/Lesion type: [place] artery [place] vs. transplanted heart: [place] heart Associated angina: without angina Qualified Code(s): I25.10 - Atherosclerotic heart disease of [place] coronary artery without angina pectoris Status: Chronic (5) Hx pulmonary embolism Status: Chronic (6) Hx of CABG Status: Chronic (7) Hx of myocardial infarction Status: Chronic (8) Hx-TIA (transient ischemic attack) Status: Chronic (9) Hx of prostatic malignancy Status: Chronic
[2016-08-15] MEDS ORDERED: CONSULT PHARMACY - ANTIBIOTIC XX SCH (14:00)
[2016-08-15] MEDS: NS 1000 ML 1,000 ML IV SCH ×2 (14:17→22:35)
[2016-08-15] MEDS: FLAGYL TAB 500 MG PO SCH ×2 (14:45→22:35)
--- NOTE | 2016-08-15 15:16 | PCM.PROG ---
Progress Note - Progress Note for Day of Date: 08/15/16 - Subjective Subjective: PATIENT CONTINUES TO REPORT DIARRHEA. STOOL STUDIES WERE OBTAINED AND REPORT C. DIFFICILE. WE DISCUSS THIS WITH PATIENT, ALONG WITH DIARRHEA AND TREATMENT. HE VOICES UNDERSTANDING. WE CONTINUE TREATMENT FOR HEMORRHAGIC CYSTITIS. URINE IS TEA-COLORED THIS MORNING. CBC WNL EXCEPT: H/H 10.6/31.2. CMP WNL EXCEPT: BUN 19, GLUCOSE 101, CALCIUM 8.0, ALK PHOS 135, TOT PROTEIN 5.3 , ALBUMIN 2.4. WE WILL START ALBUMIN IV DAILY FLAGYL Q8H, AND FLOMAX AT BEDTIME. WE WILL CONTINUE TO MONITOR AND FOLLOW UP IN AM WITH LABS. - Past Medical Family Social History Past Med/Fam/Surg Hx: No changes since H&P Allergies: Allergies No Known Drug Allergy Allergy (Unverified 12/12/11 22:31) - Review of Systems ROS: No change since H&P - Vital Signs and I&O's Vital Signs: Temperature 99.2 F Pulse Rate [Left] 94 Respiratory Rate 20 Blood Pressure [Right Arm] 110/58 O2 Sat by Pulse Oximetry 96 Intake and Output: Intake & Output 08/13/16 08/14/16 08/15/16 08/16/16 11:59 11:59 11:59 11:59 Intake Total 2220 1626 Output Total 1325 1550 Balance 895 76 - Physical Exam Oriented: Normal, Time, Person, Place Eyes: Normal. negative: Blurred Vision, Diplopia, Discharge, Pain, Redness, Photophobia Ear: Normal. negative: Swelling, Ecchymosis, Hemotypanum, Abrasion, Laceration Nose: Normal. negative: Injected, Discharge, Blood Throat: Dry. negative: Tonsillar Hypertrophy, Red, Exudate Respiratory: Normal Cardiovascular: Normal. negative: Murmur, Edema : Dysuria, Hematuria, Frequency, Discharge, Other ([place]ro Cath). negative: Testicular Pain Auscultation: Bowel Sounds: Increased. negative: Bruit Palpation: Normal. negative: Spleen Enlarged, Liver Enlarged, Mass Pulsatile Tenderness: Diffuse, Mild. negative: Rebound, Guarding, Rigidity Skin: Decreased Turgur. negative: Diaphoresis, Wound, Bruising, Ecchymosis Musculoskeletal: Instability Psychiatric: Normal Mood Description: Calm, Appropriate Affect: Normal Speech Pattern: Clear, Appropriate - Laboratory and Diagnostics Result Diagrams: 08/15/16 05:46 08/15/16 05:46 Labs: 08/15/16 06:47 Stool - Final Laboratory WBC 8.7 X10^3/uL (3.6-10.0) 08/15/16 05:46 RBC 3.56 X10^6/uL (4.7-6.0) L 08/15/16 05:46 Hgb 10.6 g/dL (13.5-18.0) L 08/15/16 05:46 Hct 31.2 % (42.0-54.0) L 08/15/16 05:46 MCV 87.6 fL (80.0-100.0) 08/15/16 05:46 MCH 29.7 pg (27.0-34.0) 08/15/16 05:46 MCHC 33.9 g/dL (33.0-35.0) 08/15/16 05:46 RDW 17.7 % (11.6-16.5) H 08/15/16 05:46 Plt Count 185 X10^3/uL (150.0-450.0) 08/15/16 05:46 Plt Count Comment Adequate (ADEQUATE) 08/14/16 15:15 MPV 8.1 fL (7.4-11.0) 08/15/16 05:46 Neut % 72.7 % (42.0-75.0) 08/15/16 05:46 Lymph % 15.9 % (21.0-51.0) L 08/15/16 05:46 [place] % 9.2 % (0.0-13.0) 08/15/16 05:46 Eos % 1.6 % (0.9-2.9) 08/15/16 05:46 Baso % 0.6 % (0.2-1.0) 08/15/16 05:46 Neut # 6.3 x10^3/uL (2.2-4.8) H 08/15/16 05:46 Lymph # 1.4 X10^3/uL (1.3-2.9) 08/15/16 05:46 [place] # 0.8 x10^3/uL (0.3-0.8) 08/15/16 05:46 Eos # 0.1 x10^3/uL (0.0-0.2) 08/15/16 05:46 Baso # 0.1 X10^3/uL (0.0-0.1) 08/15/16 05:46 Absolute Nucleated RBC 0.0 /100WBC 08/15/16 05:46 Total Counted 100 08/14/16 15:15 Neutrophils % (Manual) 74 % (39-76) 08/14/16 15:15 Band Neutrophils % 5 % (0-10) 08/14/16 15:15 Lymphocytes % (Manual) 17 % (13-43) 08/14/16 15:15 Monocytes % (Manual) 3 % (4-9) L 08/14/16 15:15 Eosinophils % (Manual) 1 % (0-6) 08/14/16 15:15 Plt Morphology Comment Normal (NORMAL) 08/14/16 15:15 RBC Morphology Abnormal (NORMAL) 08/14/16 15:15 Hypochromasia Slight A 08/14/16 15:15 Poikilocytosis Slight A 08/14/16 15:15 Anisocytosis Slight A 08/14/16 15:15 INR Target Range - 08/15/16 05:46 INR 3.26 (0.8-1.3) H 08/15/16 05:46 Sodium 142 mmol/L (136-145) 08/15/16 05:46 Corrected Sodium TNP 08/15/16 05:46 Potassium 4.0 mmol/L (3.5-5.1) 08/15/16 05:46 Chloride 107 mmol/L (98-107) 08/15/16 05:46 Carbon Dioxide 23.9 mmol/L (21-32) 08/15/16 05:46 BUN 19 mg/dL (7-18) H 08/15/16 05:46 Creatinine 1.24 mg/dL (0.70-1.30) 08/15/16 05:46 Est GFR (MDRD) Af Amer > 60 (>60) 08/15/16 05:46 Est GFR (MDRD) Non-Af 59 (>60) 08/15/16 05:46 Glucose 101 mg/dL (65-99) H 08/15/16 05:46 Calcium 8.0 mg/dL (8.5-10.1) L 08/15/16 05:46 Corrected Calcium 9.3 mg/dL (8.5-10.1) 08/15/16 05:46 Total Bilirubin 0.50 mg/dL (0.2-1.0) 08/15/16 05:46 AST 36 Units/L (15-37) 08/15/16 05:46 ALT 38 Units/L (12-78) 08/15/16 05:46 Alkaline Phosphatase 135 Units/L (46-116) H 08/15/16 05:46 Total Protein 5.3 g/dL (6.4-8.2) L 08/15/16 05:46 Albumin 2.4 g/dL (3.4-5.0) L 08/15/16 05:46 Globulin 2.9 g/dL (2.5-4.5) 08/15/16 05:46 Albumin/Globulin Ratio 0.8 Ratio (1.1-2.1) L 08/15/16 05:46 Specimen Type Clean catch urine 08/14/16 13:57 Urine Color Red (YELLOW) 08/14/16 13:57 Urine Appearance Cloudy (CLEAR) 08/14/16 13:57 Urine pH 7.0 (5.0 - 8.0) 08/14/16 13:57 Ur Specific [place] 1.010 (1.000-1.030) 08/14/16 13:57 Urine Protein 4+ (NEGATIVE) 08/14/16 13:57 Urine Glucose (UA) Negative (NEGATIVE) 08/14/16 13:57 Urine Ketones Negative (NEGATIVE) 08/14/16 13:57 Urine Occult Blood 5+ (NEGATIVE) 08/14/16 13:57 Urine Nitrite Negative (NEGATIVE) 08/14/16 13:57 Urine Bilirubin Negative (NEGATIVE) 08/14/16 13:57 Urine Urobilinogen Normal (NORMAL) 08/14/16 13:57 Ur Leukocyte Esterase 2+ (NEGATIVE) 08/14/16 13:57 Urine RBC Tntc /HPF (NEGATIVE) 08/14/16 13:57 Urine WBC 3-5 /HPF (NEGATIVE) 08/14/16 13:57 Ur Squamous Epith Cells Rare /HPF (NEGATIVE) 08/14/16 13:57 Urine Bacteria 4+ /HPF (NEGATIVE) 08/14/16 13:57 Ur Culture Indicated? Yes/culture set up 08/14/16 13:57 Stool for White Cells No wbc's seen (None) 08/15/16 06:47 Stl C. diff Tox B Gene Positive (NEGATIVE) A 08/15/16 06:47 Stl C. diff 027-NAP1-BI Negative (NEGATIVE) 08/15/16 06:47 - Plan (1) C. difficile diarrhea Status: Acute Plan: CONTINUE IV FLUIDS, START PO FLAGYL, MONITOR. (2) Acute urinary retention Status: Acute Plan: CONTINUE CASTRO CATH, START FLOMAX, MONITOR. (3) Hemorrhagic cystitis Status: Acute Plan: CONTINUE AMPICILLIN, IV FLUIDS, MONITOR OUTPUT. (4) UTI (urinary tract infection) Status: Acute Qualifiers: Urinary tract infection type: acute cystitis Hematuria presence: with hematuria Indwelling urinary catheter type: I Encounter type: E Qualified Code(s): N30.01 - Acute cystitis with hematuria Plan: ABOVE. (5) Diarrhea Status: Acute Qualifiers: Diarrhea type: presumed infectious Qualified Code(s): A09 - Infectious gastroenteritis and colitis, unspecified Plan: CONTINUE IV FLUIDS, FLAGYL, MONITOR. (6) CAD (coronary artery disease) Status: Chronic Qualifiers: Coronary Disease-Associated Artery/Lesion type: [place] artery [place] vs. 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
[2016-08-15] MEDS: ALBUMIN HUMAN 25%- 100ML 100 ML IV SCH (16:15)
[2016-08-15] MEDS: NORCO 5/325 MG TAB PO PRN ×2 (16:16→22:35)
[2016-08-15] MEDS: FLOMAX PO SCH (20:35)
[2016-08-15] MEDS: REQUIP PO SCH (20:35)
[2016-08-16] MEDS: MORPHINE SULFATE INJ 2 MG IVP PRN ×3 (00:58→22:31)
[2016-08-16] MEDS ORDERED: AMPICILLIN VIAL 1 GM ONE (02:20)
[2016-08-16] MEDS ORDERED: NS 50 ML IV + SPIKE MINIBAG* 50 ML IV ONE (02:21)
[2016-08-16] MEDS: AMPICILLIN VIAL 1 GM 1 GM in NS 50 ML IV + SPIKE MINIBAG* 50 ML IV SCH (02:56)
[2016-08-16] MEDS: FLAGYL TAB 500 MG PO SCH ×2 (06:02→15:00)
[2016-08-16 06:23] LABS: BASOPHILS # (AUTO) 0.1 X10^3/uL (0.0-0.1); BASOPHILS % (AUTO) 1.1 % (0.2-1.0); EOSINOPHILS # (AUTO) 0.1 x10^3/uL (0.0-0.2); HEMATOCRIT 27.6 % (42.0-54.0); HEMOGLOBIN 9.5 g/dL (13.5-18.0); LYMPHOCYTES # (AUTO) 0.9 X10^3/uL (1.3-2.9); LYMPHOCYTES % (AUTO) 11.4 % (21.0-51.0); MEAN CORPUSCULAR HEMOGLOBIN 30.3 pg (27.0-34.0); MEAN CORPUSCULAR HGB CONC 34.4 g/dL (33.0-35.0); MEAN PLATELET VOLUME 8.1 fL (7.4-11.0); MONOCYTES # (AUTO) 0.6 x10^3/uL (0.3-0.8); MONOCYTES % (AUTO) 7.8 % (0.0-13.0); NEUTROPHILS # (AUTO) 5.8 x10^3/uL (2.2-4.8); NEUTROPHILS % (AUTO) 77.7 % (42.0-75.0); PLATELET COUNT 148 X10^3/uL (150.0-450.0); RED BLOOD COUNT 3.13 X10^6/uL (4.7-6.0); WHITE BLOOD COUNT 7.5 X10^3/uL (3.6-10.0)
[2016-08-16 06:37] LABS: ALANINE AMINOTRANSFERASE 30 Units/L (12-78); ALBUMIN 2.4 g/dL (3.4-5.0); ALKALINE PHOSPHATASE 105 Units/L (46-116); ASPARTATE AMINO TRANSFERASE 29 Units/L (15-37); BLOOD UREA NITROGEN 14 mg/dL (7-18); CARBON DIOXIDE 25.7 mmol/L (21-32); CHLORIDE 109 mmol/L (98-107); COR CA(FOR HYPOALB) 9.3 mg/dL (8.5-10.1); COR NA(FOR HYPERGLY) 142 mmol/L (136-145); CREATININE 1.24 mg/dL (0.70-1.30); GLUCOSE 111 mg/dL (65-99); SODIUM 142 mmol/L (136-145); TOTAL PROTEIN 5.7 g/dL (6.4-8.2); eGFR BLACK RACES > 60 (>60); eGFR NON BLACK RACES 59 (>60)
[2016-08-16 07:11] LABS: BAND NEUTROPHILS % 3 % (0-10)
[2016-08-16 07:12] LABS: PLATELET MORPHOLOGY COMMENT NORMAL (NORMAL)
[2016-08-16] MEDS: K-DUR TAB 20 MEQ PO SCH (09:41)
[2016-08-16] MEDS: TOPROL XL PO SCH (09:41)
[2016-08-16] MEDS: LASIX PO SCH (09:41)
[2016-08-16] MEDS: ALBUMIN HUMAN 25%- 100ML 100 ML IV SCH (09:42)
[2016-08-16] MEDS: NS 1000 ML 1,000 ML IV SCH ×4 (10:04→20:28)
[2016-08-16] MEDS: INVANZ INJ 1 GM VIAL 1 GM in NS 50 ML IV + SPIKE MINIBAG* 50 ML IV SCH (10:18)
[2016-08-16] MEDS: ZOFRAN INJ 4 MG VIAL IVP PRN (11:45)
[2016-08-16 16:17] LABS: BAND NEUTROPHILS % 5 % (0-10)
[2016-08-16 16:18] LABS: ANISOCYTOSIS SLIGHT; BURR CELLS SLIGHT; HYPOCHROMASIA SLIGHT; PLATELET MORPHOLOGY COMMENT NORMAL (NORMAL)
[2016-08-16] MEDS: REQUIP PO SCH (20:44)
[2016-08-16] MEDS: FLOMAX PO SCH (20:44)
[2016-08-17] MEDS: FLAGYL TAB 500 MG PO SCH ×4 (01:24→22:05)
[2016-08-17] MEDS: NS 1000 ML 1,000 ML IV SCH ×2 (01:24→06:24)
[2016-08-17] MEDS: ZOFRAN INJ 4 MG VIAL IVP PRN (06:14)
[2016-08-17 06:30] LABS: BASOPHILS # (AUTO) 0.1 X10^3/uL (0.0-0.1); EOSINOPHILS # (AUTO) 0.2 x10^3/uL (0.0-0.2); EOSINOPHILS % (AUTO) 2.4 % (0.9-2.9); HEMATOCRIT 27.2 % (42.0-54.0); HEMOGLOBIN 9.4 g/dL (13.5-18.0); LYMPHOCYTES # (AUTO) 1.2 X10^3/uL (1.3-2.9); LYMPHOCYTES % (AUTO) 15.4 % (21.0-51.0); MEAN CORPUSCULAR HEMOGLOBIN 30.1 pg (27.0-34.0); MEAN CORPUSCULAR HGB CONC 34.6 g/dL (33.0-35.0); MEAN CORPUSCULAR VOLUME 87.1 fL (80.0-100.0); MEAN PLATELET VOLUME 8.2 fL (7.4-11.0); MONOCYTES # (AUTO) 0.7 x10^3/uL (0.3-0.8); MONOCYTES % (AUTO) 9.6 % (0.0-13.0); NEUTROPHILS # (AUTO) 5.4 x10^3/uL (2.2-4.8); NEUTROPHILS % (AUTO) 71.6 % (42.0-75.0); PLATELET COUNT 164 X10^3/uL (150.0-450.0); RED BLOOD COUNT 3.13 X10^6/uL (4.7-6.0); RED CELL DISTRIBUTION WIDTH 17.9 % (11.6-16.5); WHITE BLOOD COUNT 7.5 X10^3/uL (3.6-10.0)
[2016-08-17 06:58] LABS: ALANINE AMINOTRANSFERASE 33 Units/L (12-78); ALBUMIN 2.7 g/dL (3.4-5.0); ALKALINE PHOSPHATASE 94 Units/L (46-116); ASPARTATE AMINO TRANSFERASE 28 Units/L (15-37); BLOOD UREA NITROGEN 11 mg/dL (7-18); CALCIUM 8.5 mg/dL (8.5-10.1); CHLORIDE 105 mmol/L (98-107); COR CA(FOR HYPOALB) 9.5 mg/dL (8.5-10.1); CREATININE 1.38 mg/dL (0.70-1.30); GLUCOSE 102 mg/dL (65-99); SODIUM 140 mmol/L (136-145); eGFR BLACK RACES > 60 (>60); eGFR NON BLACK RACES 52 (>60)
[2016-08-17 07:24] LABS: BAND NEUTROPHILS % 4 % (0-10); PLATELET MORPHOLOGY COMMENT NORMAL (NORMAL)
[2016-08-17] MEDS: MORPHINE SULFATE INJ 2 MG IVP PRN ×4 (08:36→21:56)
[2016-08-17] MEDS: INVANZ INJ 1 GM VIAL 1 GM in NS 50 ML IV + SPIKE MINIBAG* 50 ML IV SCH (08:40)
[2016-08-17] MEDS: ALBUMIN HUMAN 25%- 100ML 100 ML IV SCH (08:40)
[2016-08-17] MEDS: TOPROL XL PO SCH (10:33)
[2016-08-17] MEDS: K-DUR TAB 20 MEQ PO SCH (10:33)
[2016-08-17] MEDS: LASIX PO SCH (10:33)
[2016-08-17] MEDS ORDERED: GENTAMICIN SULF (OPHTH) AFFEYE SCH (12:00)
[2016-08-17] MEDS: NORCO 5/325 MG TAB PO PRN ×2 (12:54→23:53)
[2016-08-17] MEDS: COLCRYS TAB 0.6 MG PO SCH ×2 (12:54→20:19)
[2016-08-17] MEDS: ZOLOFT PO SCH (12:54)
[2016-08-17] MEDS: TOBREX DROPS AFFEYE SCH ×3 (14:45→22:05)
[2016-08-17] MEDS: MEGACE PO SCH ×2 (15:10→20:18)
--- NOTE | 2016-08-17 17:22 | PCM.PROG ---
Progress Note - Progress Note for Day of Date: 08/16/16 - Subjective Subjective: PATIENT CONTINUES WITH EPISODIC DIARRHEA AND HE CONTINUES ON TREATMENT FOR C-DIFF. WE ALSO CONTINUE TREATMENT FOR HEMORRHAGIC CYSTITIS. URINE IS CONCENTRATED. PRELIMINARY URINE CULTURE REPORTS GRAM NEGATIVE RODS. PATIENT HAD A TEMPERATURE OF 101.1 THROUGH THE NIGHT. CBC WNL EXCEPT: H/H 9.5/ 27.6, PLT COUNT 148. CMP WNL EXCEPT: GLUCOSE 111, CALCIUM 8.0, TOT PROTEIN 5.7 , ALBUMIN 2.4. WE WILL CONTINUE CURRENT TREATMENT, CONTINUE TO MONITOR, AND FOLLOW UP IN AM WITH LABS. - Past Medical Family Social History Past Med/Fam/Surg Hx: No changes since H&P Allergies: Allergies No Known Drug Allergy Allergy (Unverified 12/12/11 22:31) - Review of Systems ROS: No change since H&P - Vital Signs and I&O's Vital Signs: Temperature 98.9 F Pulse Rate [Right Brachial] 92 Pulse Rate [Left] 86 Respiratory Rate 20 Blood Pressure [Left Arm] 125/62 Blood Pressure [Right Arm] 131/69 O2 Sat by Pulse Oximetry 97 Intake and Output: Intake & Output 08/15/16 08/16/16 08/17/16 08/18/16 11:59 11:59 11:59 11:59 Intake Total 2220 3686 3550 75 Output Total 1325 1950 3900 Balance 895 1736 -350 75 - Physical Exam Oriented: Normal, Time, Person, Place Eyes: Normal. negative: Blurred Vision, Diplopia, Discharge, Pain, Redness, Photophobia Ear: Normal. negative: Swelling, Ecchymosis, Hemotypanum, Abrasion, Laceration Nose: Normal. negative: Injected, Discharge, Blood Throat: Dry. negative: Tonsillar Hypertrophy, Red, Exudate Respiratory: Normal Cardiovascular: Normal. negative: Murmur, Edema : Dysuria, Hematuria, Frequency, Discharge, Other ([place] Cath). negative: Testicular Pain Auscultation: Bowel Sounds: Increased. negative: Bruit Palpation: Normal. negative: Spleen Enlarged, Liver Enlarged, Mass Pulsatile Tenderness: Diffuse, Mild. negative: Rebound, Guarding, Rigidity Skin: Decreased Turgur. negative: Diaphoresis, Wound, Bruising, Ecchymosis Musculoskeletal: Instability Psychiatric: Normal Mood Description: Calm, Appropriate Affect: Normal Speech Pattern: Clear, Appropriate - Laboratory and Diagnostics Result Diagrams: 08/17/16 05:21 08/17/16 05:21 Labs: 08/15/16 23:45 Blood Blood Culture - Preliminary 08/15/16 23:55 Blood Blood Culture - Preliminary 08/15/16 06:47 Stool Stool Culture - Preliminary 08/15/16 06:47 Stool - Final Laboratory WBC 7.5 X10^3/uL (3.6-10.0) 08/17/16 05:21 RBC 3.13 X10^6/uL (4.7-6.0) L 08/17/16 05:21 Hgb 9.4 g/dL (13.5-18.0) L 08/17/16 05:21 Hct 27.2 % (42.0-54.0) L 08/17/16 05:21 MCV 87.1 fL (80.0-100.0) 08/17/16 05:21 MCH 30.1 pg (27.0-34.0) 08/17/16 05:21 MCHC 34.6 g/dL (33.0-35.0) 08/17/16 05:21 RDW 17.9 % (11.6-16.5) H 08/17/16 05:21 Plt Count 164 X10^3/uL (150.0-450.0) 08/17/16 05:21 Plt Count Comment Adequate (ADEQUATE) 08/17/16 05:21 MPV 8.2 fL (7.4-11.0) 08/17/16 05:21 Neut % 71.6 % (42.0-75.0) 08/17/16 05:21 Lymph % 15.4 % (21.0-51.0) L 08/17/16 05:21 [place] % 9.6 % (0.0-13.0) 08/17/16 05:21 Eos % 2.4 % (0.9-2.9) 08/17/16 05:21 Baso % 1.0 % (0.2-1.0) 08/17/16 05:21 Neut # 5.4 x10^3/uL (2.2-4.8) H 08/17/16 05:21 Lymph # 1.2 X10^3/uL (1.3-2.9) L 08/17/16 05:21 [place] # 0.7 x10^3/uL (0.3-0.8) 08/17/16 05:21 Eos # 0.2 x10^3/uL (0.0-0.2) 08/17/16 05:21 Baso # 0.1 X10^3/uL (0.0-0.1) 08/17/16 05:21 Absolute Nucleated RBC 0.0 /100WBC 08/17/16 05:21 Total Counted 100 08/17/16 05:21 Neutrophils % (Manual) 71 % (39-76) 08/17/16 05:21 Band Neutrophils % 4 % (0-10) 08/17/16 05:21 Lymphocytes % (Manual) 20 % (13-43) 08/17/16 05:21 Monocytes % (Manual) 3 % (4-9) L 08/17/16 05:21 Eosinophils % (Manual) 3 % (0-6) 08/17/16 05:21 Plt Morphology Comment Normal (NORMAL) 08/17/16 05:21 RBC Morphology Normal (NORMAL) 08/17/16 05:21 Hypochromasia Slight A 08/15/16 05:46 Poikilocytosis Slight A 08/14/16 15:15 Anisocytosis Slight A 08/15/16 05:46 [place] Cells Slight A 08/15/16 05:46 INR Target Range - 08/17/16 05:21 INR 2.19 (0.8-1.3) H 08/17/16 05:21 Sodium 140 mmol/L (136-145) 08/17/16 05:21 Corrected Sodium TNP 08/17/16 05:21 Potassium 3.7 mmol/L (3.5-5.1) 08/17/16 05:21 Chloride 105 mmol/L (98-107) 08/17/16 05:21 Carbon Dioxide 23.0 mmol/L (21-32) 08/17/16 05:21 BUN 11 mg/dL (7-18) 08/17/16 05:21 Creatinine 1.38 mg/dL (0.70-1.30) H 08/17/16 05:21 Est GFR (MDRD) Af Amer > 60 (>60) 08/17/16 05:21 Est GFR (MDRD) Non-Af 52 (>60) L 08/17/16 05:21 Glucose 102 mg/dL (65-99) H 08/17/16 05:21 Uric Acid 6.0 mg/dL (3.5-7.2) 08/17/16 05:21 Calcium 8.5 mg/dL (8.5-10.1) 08/17/16 05:21 Corrected Calcium 9.5 mg/dL (8.5-10.1) 08/17/16 05:21 Total Bilirubin 0.70 mg/dL (0.2-1.0) 08/17/16 05:21 AST 28 Units/L (15-37) 08/17/16 05:21 ALT 33 Units/L (12-78) 08/17/16 05:21 Alkaline Phosphatase 94 Units/L (46-116) 08/17/16 05:21 Total Protein 6.0 g/dL (6.4-8.2) L 08/17/16 05:21 Albumin 2.7 g/dL (3.4-5.0) L 08/17/16 05:21 Globulin 3.3 g/dL (2.5-4.5) 08/17/16 05:21 Albumin/Globulin Ratio 0.8 Ratio (1.1-2.1) L 08/17/16 05:21 Specimen Type Clean catch urine 08/14/16 13:57 Urine Color Red (YELLOW) 08/14/16 13:57 Urine Appearance Cloudy (CLEAR) 08/14/16 13:57 Urine pH 7.0 (5.0 - 8.0) 08/14/16 13:57 Ur Specific [place] 1.010 (1.000-1.030) 08/14/16 13:57 Urine Protein 4+ (NEGATIVE) 08/14/16 13:57 Urine Glucose (UA) Negative (NEGATIVE) 08/14/16 13:57 Urine Ketones Negative (NEGATIVE) 08/14/16 13:57 Urine Occult Blood 5+ (NEGATIVE) 08/14/16 13:57 Urine Nitrite Negative (NEGATIVE) 08/14/16 13:57 Urine Bilirubin Negative (NEGATIVE) 08/14/16 13:57 Urine Urobilinogen Normal (NORMAL) 08/14/16 13:57 Ur Leukocyte Esterase 2+ (NEGATIVE) 08/14/16 13:57 Urine RBC Tntc /HPF (NEGATIVE) 08/14/16 13:57 Urine WBC 3-5 /HPF (NEGATIVE) 08/14/16 13:57 Ur Squamous Epith Cells Rare /HPF (NEGATIVE) 08/14/16 13:57 Urine Bacteria 4+ /HPF (NEGATIVE) 08/14/16 13:57 Ur Culture Indicated? Yes/culture set up 08/14/16 13:57 Stool for White Cells No wbc's seen (None) 08/15/16 06:47 Stl C. diff Tox B Gene Positive (NEGATIVE) A 08/15/16 06:47 Stl C. diff 027-NAP1-BI Negative (NEGATIVE) 08/15/16 06:47 - Plan (1) C. difficile diarrhea Status: Acute Plan: CONTINUE IV FLUIDS, PO FLAGYL, MONITOR. (2) Acute urinary retention Status: Acute Plan: CONTINUE FLOMAX, MONITOR. (3) Hemorrhagic cystitis Status: Acute Plan: DISCONTINUE AMPICILLIN, START INVANZ, CONTINUE IV FLUIDS, MONITOR OUTPUT. (4) UTI (urinary tract infection) Status: Acute Qualifiers: Urinary tract infection type: acute cystitis Hematuria presence: with hematuria Indwelling urinary catheter type: I Encounter type: E Qualified Code(s): N30.01 - Acute cystitis with hematuria Plan: ABOVE. (5) Diarrhea Status: Acute Qualifiers: Diarrhea type: presumed infectious Qualified Code(s): A09 - Infectious gastroenteritis and colitis, unspecified Plan: CONTINUE IV FLUIDS, FLAGYL, MONITOR. (6) CAD (coronary artery disease) Status: Chronic Qualifiers: Coronary Disease-Associated Artery/Lesion type: [place] artery [place] vs. transplanted heart: [place] heart Associated angina: without angina Qualified Code(s): I25.10 - Atherosclerotic heart disease of [place] coronary artery without angina pectoris (7) Hx pulmonary embolism Status: Chronic (8) Hx of CABG Status: Chronic (9) Hx of myocardial infarction Status: Chronic (10) Hx-TIA (transient ischemic attack) Status: Chronic (11) Hx of prostatic malignancy Status: Chronic
--- NOTE | 2016-08-17 17:30 | PCM.PROG ---
Progress Note - Progress Note for Day of Date: 08/17/16 - Subjective Subjective: PATIENT IS NOTED WITH A TEMPERATURE OF 100.5 THROUGH THE NIGHT. PATIENT CONTINUES ON TREATMENT FOR C-DIFF AND HEMORRHAGIC CYSTITIS. URINE CONTINUES TO BE CONCENTRATED. FINAL URINE CULTURE REPORTS E-COLI, WHICH IS SENSITIVE TO INVANZ. PATIENT IS NOTED WITH DEPRESSION. HE REPORTS PAIN TO LEFT ANKLE AREA. ON EXAMINATION, LEFT ANKLE IS NOTED WITH ERYTHEMA, WARMTH, EDEMA. PATIENT REPORTS HISTORY OF GOUT, HOWEVER, IS NOT TAKING MEDICATION FOR GOUT. HE IS ALSO NOTED WITH YELLOW DRAINAGE TO RIGHT EYE. CBC WNL EXCEPT: H/H 9.4/27.2. CMP WNL EXCEPT: CREAT 1.38, GFR 52, GLUCOSE 102, TOT PROTEIN 6.0, ALBUMIN 2.7. WE WILL CONTINUE CURRENT TREATMENT, CONTINUE TO MONITOR, AND FOLLOW UP IN AM WITH LABS. - Past Medical Family Social History Past Med/Fam/Surg Hx: No changes since H&P Allergies: Allergies No Known Drug Allergy Allergy (Unverified 12/12/11 22:31) - Review of Systems ROS: No change since H&P - Vital Signs and I&O's Vital Signs: Temperature 98.9 F Pulse Rate [Right Brachial] 92 Pulse Rate [Left] 86 Respiratory Rate 20 Blood Pressure [Left Arm] 125/62 Blood Pressure [Right Arm] 131/69 O2 Sat by Pulse Oximetry 97 Intake and Output: Intake & Output 08/15/16 08/16/16 08/17/16 08/18/16 11:59 11:59 11:59 11:59 Intake Total 2220 3686 3550 75 Output Total 1325 1950 3900 Balance 895 1736 -350 75 - Physical Exam Oriented: Normal, Time, Person, Place Eyes: Normal. negative: Blurred Vision, Diplopia, Discharge, Pain, Redness, Photophobia Ear: Normal. negative: Swelling, Ecchymosis, Hemotypanum, Abrasion, Laceration Nose: Normal. negative: Injected, Discharge, Blood Throat: Dry. negative: Tonsillar Hypertrophy, Red, Exudate Respiratory: Normal Cardiovascular: Normal. negative: Murmur, Edema : Dysuria, Hematuria, Frequency, Discharge, Other (Jackson Cath). negative: Testicular Pain Auscultation: Bowel Sounds: Increased. negative: Bruit Palpation: Normal. negative: Spleen Enlarged, Liver Enlarged, Mass Pulsatile Tenderness: Diffuse, Mild. negative: Rebound, Guarding, Rigidity Skin: Decreased Turgur. negative: Diaphoresis, Wound, Bruising, Ecchymosis Musculoskeletal: Instability Psychiatric: Normal Mood Description: Calm, Appropriate Affect: Normal Speech Pattern: Clear, Appropriate - Laboratory and Diagnostics Result Diagrams: 08/17/16 05:21 08/17/16 05:21 Labs: 08/15/16 23:45 Blood Blood Culture - Preliminary 08/15/16 23:55 Blood Blood Culture - Preliminary 08/15/16 06:47 Stool Stool Culture - Preliminary 08/15/16 06:47 Stool - Final Laboratory WBC 7.5 X10^3/uL (3.6-10.0) 08/17/16 05:21 RBC 3.13 X10^6/uL (4.7-6.0) L 08/17/16 05:21 Hgb 9.4 g/dL (13.5-18.0) L 08/17/16 05:21 Hct 27.2 % (42.0-54.0) L 08/17/16 05:21 MCV 87.1 fL (80.0-100.0) 08/17/16 05:21 MCH 30.1 pg (27.0-34.0) 08/17/16 05:21 MCHC 34.6 g/dL (33.0-35.0) 08/17/16 05:21 RDW 17.9 % (11.6-16.5) H 08/17/16 05:21 Plt Count 164 X10^3/uL (150.0-450.0) 08/17/16 05:21 Plt Count Comment Adequate (ADEQUATE) 08/17/16 05:21 MPV 8.2 fL (7.4-11.0) 08/17/16 05:21 Neut % 71.6 % (42.0-75.0) 08/17/16 05:21 Lymph % 15.4 % (21.0-51.0) L 08/17/16 05:21 [place] % 9.6 % (0.0-13.0) 08/17/16 05:21 Eos % 2.4 % (0.9-2.9) 08/17/16 05:21 Baso % 1.0 % (0.2-1.0) 08/17/16 05:21 Neut # 5.4 x10^3/uL (2.2-4.8) H 08/17/16 05:21 Lymph # 1.2 X10^3/uL (1.3-2.9) L 08/17/16 05:21 [place] # 0.7 x10^3/uL (0.3-0.8) 08/17/16 05:21 Eos # 0.2 x10^3/uL (0.0-0.2) 08/17/16 05:21 Baso # 0.1 X10^3/uL (0.0-0.1) 08/17/16 05:21 Absolute Nucleated RBC 0.0 /100WBC 08/17/16 05:21 Total Counted 100 08/17/16 05:21 Neutrophils % (Manual) 71 % (39-76) 08/17/16 05:21 Band Neutrophils % 4 % (0-10) 08/17/16 05:21 Lymphocytes % (Manual) 20 % (13-43) 08/17/16 05:21 Monocytes % (Manual) 3 % (4-9) L 08/17/16 05:21 Eosinophils % (Manual) 3 % (0-6) 08/17/16 05:21 Plt Morphology Comment Normal (NORMAL) 08/17/16 05:21 RBC Morphology Normal (NORMAL) 08/17/16 05:21 Hypochromasia Slight A 08/15/16 05:46 Poikilocytosis Slight A 08/14/16 15:15 Anisocytosis Slight A 08/15/16 05:46 [place] Cells Slight A 08/15/16 05:46 INR Target Range - 08/17/16 05:21 INR 2.19 (0.8-1.3) H 08/17/16 05:21 Sodium 140 mmol/L (136-145) 08/17/16 05:21 Corrected Sodium TNP 08/17/16 05:21 Potassium 3.7 mmol/L (3.5-5.1) 08/17/16 05:21 Chloride 105 mmol/L (98-107) 08/17/16 05:21 Carbon Dioxide 23.0 mmol/L (21-32) 08/17/16 05:21 BUN 11 mg/dL (7-18) 08/17/16 05:21 Creatinine 1.38 mg/dL (0.70-1.30) H 08/17/16 05:21 Est GFR (MDRD) Af Amer > 60 (>60) 08/17/16 05:21 Est GFR (MDRD) Non-Af 52 (>60) L 08/17/16 05:21 Glucose 102 mg/dL (65-99) H 08/17/16 05:21 Uric Acid 6.0 mg/dL (3.5-7.2) 08/17/16 05:21 Calcium 8.5 mg/dL (8.5-10.1) 08/17/16 05:21 Corrected Calcium 9.5 mg/dL (8.5-10.1) 08/17/16 05:21 Total Bilirubin 0.70 mg/dL (0.2-1.0) 08/17/16 05:21 AST 28 Units/L (15-37) 08/17/16 05:21 ALT 33 Units/L (12-78) 08/17/16 05:21 Alkaline Phosphatase 94 Units/L (46-116) 08/17/16 05:21 Total Protein 6.0 g/dL (6.4-8.2) L 08/17/16 05:21 Albumin 2.7 g/dL (3.4-5.0) L 08/17/16 05:21 Globulin 3.3 g/dL (2.5-4.5) 08/17/16 05:21 Albumin/Globulin Ratio 0.8 Ratio (1.1-2.1) L 08/17/16 05:21 Specimen Type Clean catch urine 08/14/16 13:57 Urine Color Red (YELLOW) 08/14/16 13:57 Urine Appearance Cloudy (CLEAR) 08/14/16 13:57 Urine pH 7.0 (5.0 - 8.0) 08/14/16 13:57 Ur Specific [place] 1.010 (1.000-1.030) 08/14/16 13:57 Urine Protein 4+ (NEGATIVE) 08/14/16 13:57 Urine Glucose (UA) Negative (NEGATIVE) 08/14/16 13:57 Urine Ketones Negative (NEGATIVE) 08/14/16 13:57 Urine Occult Blood 5+ (NEGATIVE) 08/14/16 13:57 Urine Nitrite Negative (NEGATIVE) 08/14/16 13:57 Urine Bilirubin Negative (NEGATIVE) 08/14/16 13:57 Urine Urobilinogen Normal (NORMAL) 08/14/16 13:57 Ur Leukocyte Esterase 2+ (NEGATIVE) 08/14/16 13:57 Urine RBC Tntc /HPF (NEGATIVE) 08/14/16 13:57 Urine WBC 3-5 /HPF (NEGATIVE) 08/14/16 13:57 Ur Squamous Epith Cells Rare /HPF (NEGATIVE) 08/14/16 13:57 Urine Bacteria 4+ /HPF (NEGATIVE) 08/14/16 13:57 Ur Culture Indicated? Yes/culture set up 08/14/16 13:57 Stool for White Cells No wbc's seen (None) 08/15/16 06:47 Stl C. diff Tox B Gene Positive (NEGATIVE) A 08/15/16 06:47 Stl C. diff [id number] Negative (NEGATIVE) 08/15/16 06:47 - Plan (1) C. difficile diarrhea Status: Acute Plan: CONTINUE IV FLUIDS, PO FLAGYL, MONITOR. (2) E-coli UTI Status: Acute Plan: CONTINUE INVANZ, MONITOR. (3) Acute urinary retention Status: Acute Plan: CONTINUE FLOMAX, MONITOR. (4) Hemorrhagic cystitis Status: Acute Plan: CONTINUE INVANZ, IV FLUIDS, MONITOR OUTPUT. (5) UTI (urinary tract infection) Status: Acute Qualifiers: Urinary tract infection type: acute cystitis Hematuria presence: with hematuria Indwelling urinary catheter type: I Encounter type: E Qualified Code(s): N30.01 - Acute cystitis with hematuria Plan: ABOVE. (6) Diarrhea Status: Acute Qualifiers: Diarrhea type: presumed infectious Qualified Code(s): A09 - Infectious gastroenteritis and colitis, unspecified Plan: CONTINUE IV FLUIDS, FLAGYL, MONITOR. (7) CAD (coronary artery disease) Status: Chronic Qualifiers: Coronary Disease-Associated Artery/Lesion type: [place] artery [place] vs. transplanted heart: [place] heart Associated angina: without angina Qualified Code(s): I25.10 - Atherosclerotic heart disease of [place] coronary artery without angina pectoris (8) Hx pulmonary embolism Status: Chronic (9) Hx of CABG Status: Chronic (10) Hx of myocardial infarction Status: Chronic (11) Hx-TIA (transient ischemic attack) Status: Chronic (12) Hx of prostatic malignancy Status: Chronic
[2016-08-17] MEDS: REQUIP PO SCH (20:18)
[2016-08-17] MEDS: FLOMAX PO SCH (20:18)
[2016-08-18] MEDS: TOBREX DROPS AFFEYE SCH ×6 (01:54→22:29)
[2016-08-18] MEDS: MORPHINE SULFATE INJ 2 MG IVP PRN ×2 (04:44→14:05)
[2016-08-18 05:21] LABS: BASOPHILS # (AUTO) 0.1 X10^3/uL (0.0-0.1); BASOPHILS % (AUTO) 0.7 % (0.2-1.0); EOSINOPHILS # (AUTO) 0.1 x10^3/uL (0.0-0.2); EOSINOPHILS % (AUTO) 1.5 % (0.9-2.9); HEMATOCRIT 27.9 % (42.0-54.0); HEMOGLOBIN 9.5 g/dL (13.5-18.0); LYMPHOCYTES % (AUTO) 13.4 % (21.0-51.0); MEAN CORPUSCULAR HEMOGLOBIN 29.6 pg (27.0-34.0); MEAN PLATELET VOLUME 8.2 fL (7.4-11.0); MONOCYTES # (AUTO) 0.9 x10^3/uL (0.3-0.8); MONOCYTES % (AUTO) 11.1 % (0.0-13.0); NEUTROPHILS # (AUTO) 5.7 x10^3/uL (2.2-4.8); NEUTROPHILS % (AUTO) 73.3 % (42.0-75.0); PLATELET COUNT 180 X10^3/uL (150.0-450.0); RED BLOOD COUNT 3.21 X10^6/uL (4.7-6.0); RED CELL DISTRIBUTION WIDTH 17.3 % (11.6-16.5); WHITE BLOOD COUNT 7.8 X10^3/uL (3.6-10.0)
[2016-08-18 05:27] LABS: ALANINE AMINOTRANSFERASE 25 Units/L (12-78); ALBUMIN 2.6 g/dL (3.4-5.0); ALKALINE PHOSPHATASE 87 Units/L (46-116); ASPARTATE AMINO TRANSFERASE 19 Units/L (15-37); BLOOD UREA NITROGEN 14 mg/dL (7-18); CALCIUM 8.4 mg/dL (8.5-10.1); CHLORIDE 102 mmol/L (98-107); COR CA(FOR HYPOALB) 9.5 mg/dL (8.5-10.1); COR NA(FOR HYPERGLY) 138 mmol/L (136-145); GLUCOSE 124 mg/dL (65-99); SODIUM 137 mmol/L (136-145); TOTAL PROTEIN 5.9 g/dL (6.4-8.2); URIC ACID 6.1 mg/dL (3.5-7.2); eGFR BLACK RACES > 60 (>60); eGFR NON BLACK RACES 56 (>60)
[2016-08-18] MEDS: FLAGYL TAB 500 MG PO SCH ×3 (06:00→22:33)
[2016-08-18] MEDS: ALBUMIN HUMAN 25%- 100ML 100 ML IV SCH (08:59)
[2016-08-18] MEDS: INVANZ INJ 1 GM VIAL 1 GM in NS 50 ML IV + SPIKE MINIBAG* 50 ML IV SCH (09:04)
[2016-08-18] MEDS: TOPROL XL PO SCH (09:05)
[2016-08-18] MEDS: LASIX PO SCH (09:05)
[2016-08-18] MEDS: ZOLOFT PO SCH (09:05)
[2016-08-18] MEDS: MEGACE PO SCH ×2 (09:05→20:10)
[2016-08-18] MEDS: COLCRYS TAB 0.6 MG PO SCH (09:06)
[2016-08-18] MEDS: K-DUR TAB 20 MEQ PO SCH (09:09)
[2016-08-18] MEDS ORDERED: NS 500 ML IV 500 ML IV ONE (11:08)
--- NOTE | 2016-08-18 15:38 | VAS ---
HISTORY: Bilateral lower extremity pain Study: Bilateral lower extremity venous Doppler ultrasound Comparison: None TECHNIQUE: Multiple diamond scale and color flow Doppler images of the deep venous system were obtaine d of the bilateral lower extremities. FINDINGS: The deep venous systems of the bilateral lower extremities were evaluated from the level of the comm on femoral vein through the popliteal vein. Normal color flow and augmentation can be observed. In addition, normal compression is seen throughout the deep venous system. IMPRESSION: 1. Negative for DVT. Reported By:
[2016-08-18] MEDS: FLOMAX PO SCH (20:10)
[2016-08-18] MEDS: REQUIP PO SCH (20:10)
[2016-08-18] MEDS: NORCO 5/325 MG TAB PO PRN (22:32)
[2016-08-18] MEDS ORDERED: NEOSPORIN OINT ONE (22:36)
[2016-08-19] MEDS: COLCRYS TAB 0.6 MG PO SCH ×3 (00:43→21:34)
[2016-08-19] MEDS: TOBREX DROPS AFFEYE SCH ×6 (02:16→21:33)
[2016-08-19 06:19] LABS: BASOPHILS # (AUTO) 0.1 X10^3/uL (0.0-0.1); BASOPHILS % (AUTO) 0.6 % (0.2-1.0); EOSINOPHILS # (AUTO) 0.1 x10^3/uL (0.0-0.2); EOSINOPHILS % (AUTO) 1.5 % (0.9-2.9); HEMATOCRIT 28.6 % (42.0-54.0); HEMOGLOBIN 9.9 g/dL (13.5-18.0); LYMPHOCYTES # (AUTO) 1.1 X10^3/uL (1.3-2.9); LYMPHOCYTES % (AUTO) 13.3 % (21.0-51.0); MEAN CORPUSCULAR HEMOGLOBIN 29.9 pg (27.0-34.0); MEAN CORPUSCULAR HGB CONC 34.4 g/dL (33.0-35.0); MEAN CORPUSCULAR VOLUME 86.7 fL (80.0-100.0); MEAN PLATELET VOLUME 8.2 fL (7.4-11.0); MONOCYTES # (AUTO) 0.9 x10^3/uL (0.3-0.8); MONOCYTES % (AUTO) 10.1 % (0.0-13.0); NEUTROPHILS # (AUTO) 6.3 x10^3/uL (2.2-4.8); NEUTROPHILS % (AUTO) 74.5 % (42.0-75.0); PLATELET COUNT 200 X10^3/uL (150.0-450.0); RED CELL DISTRIBUTION WIDTH 17.3 % (11.6-16.5); WHITE BLOOD COUNT 8.5 X10^3/uL (3.6-10.0)
[2016-08-19 06:20] LABS: ALANINE AMINOTRANSFERASE 23 Units/L (12-78); ALBUMIN 2.8 g/dL (3.4-5.0); ALKALINE PHOSPHATASE 82 Units/L (46-116); ASPARTATE AMINO TRANSFERASE 25 Units/L (15-37); BLOOD UREA NITROGEN 18 mg/dL (7-18); CARBON DIOXIDE 27.8 mmol/L (21-32); CHLORIDE 104 mmol/L (98-107); COR NA(FOR HYPERGLY) 141 mmol/L (136-145); CREATININE 1.25 mg/dL (0.70-1.30); GLUCOSE 124 mg/dL (65-99); SODIUM 140 mmol/L (136-145); TOTAL PROTEIN 6.3 g/dL (6.4-8.2); URIC ACID 6.6 mg/dL (3.5-7.2); eGFR BLACK RACES > 60 (>60); eGFR NON BLACK RACES 58 (>60)
[2016-08-19] MEDS: COUMADIN TAB 5 MG PO SCH (10:00)
[2016-08-19] MEDS ORDERED: NS 50 ML IV + SPIKE MINIBAG* 50 ML IV ONE (10:01)
[2016-08-19] MEDS: ALBUMIN HUMAN 25%- 100ML 100 ML IV SCH (10:07)
[2016-08-19] MEDS: FLAGYL TAB 500 MG PO SCH ×3 (10:08→22:45)
[2016-08-19] MEDS: TOPROL XL PO SCH (10:08)
[2016-08-19] MEDS: K-DUR TAB 20 MEQ PO SCH (10:08)
[2016-08-19] MEDS: LASIX PO SCH (10:09)
[2016-08-19] MEDS: ZOLOFT PO SCH (10:09)
[2016-08-19] MEDS: MEGACE PO SCH ×2 (10:10→21:32)
[2016-08-19] MEDS: INVANZ INJ 1 GM VIAL 1 GM in NS 50 ML IV + SPIKE MINIBAG* 50 ML IV SCH (10:10)
[2016-08-19] MEDS: REQUIP PO SCH (21:32)
[2016-08-19] MEDS: FLOMAX PO SCH (21:32)
[2016-08-20] MEDS: NORCO 5/325 MG TAB PO PRN ×2 (01:38→10:23)
[2016-08-20] MEDS: TOBREX DROPS AFFEYE SCH ×4 (02:14→14:35)
[2016-08-20 03:44] LABS: BASOPHILS # (AUTO) 0.1 X10^3/uL (0.0-0.1); BASOPHILS % (AUTO) 0.8 % (0.2-1.0); EOSINOPHILS # (AUTO) 0.1 x10^3/uL (0.0-0.2); EOSINOPHILS % (AUTO) 1.6 % (0.9-2.9); HEMOGLOBIN 9.8 g/dL (13.5-18.0); LYMPHOCYTES # (AUTO) 1.1 X10^3/uL (1.3-2.9); LYMPHOCYTES % (AUTO) 14.9 % (21.0-51.0); MEAN CORPUSCULAR HEMOGLOBIN 29.4 pg (27.0-34.0); MEAN CORPUSCULAR HGB CONC 33.8 g/dL (33.0-35.0); MEAN CORPUSCULAR VOLUME 86.8 fL (80.0-100.0); MEAN PLATELET VOLUME 7.8 fL (7.4-11.0); MONOCYTES # (AUTO) 0.7 x10^3/uL (0.3-0.8); NEUTROPHILS # (AUTO) 5.5 x10^3/uL (2.2-4.8); NEUTROPHILS % (AUTO) 73.7 % (42.0-75.0); PLATELET COUNT 204 X10^3/uL (150.0-450.0); RED BLOOD COUNT 3.34 X10^6/uL (4.7-6.0); RED CELL DISTRIBUTION WIDTH 17.5 % (11.6-16.5); WHITE BLOOD COUNT 7.5 X10^3/uL (3.6-10.0)
[2016-08-20 03:59] LABS: ALANINE AMINOTRANSFERASE 27 Units/L (12-78); ALBUMIN 2.9 g/dL (3.4-5.0); ALKALINE PHOSPHATASE 76 Units/L (46-116); ASPARTATE AMINO TRANSFERASE 32 Units/L (15-37); BLOOD UREA NITROGEN 22 mg/dL (7-18); CALCIUM 8.7 mg/dL (8.5-10.1); CARBON DIOXIDE 26.7 mmol/L (21-32); CHLORIDE 105 mmol/L (98-107); COR CA(FOR HYPOALB) 9.6 mg/dL (8.5-10.1); COR NA(FOR HYPERGLY) 141 mmol/L (136-145); CREATININE 1.26 mg/dL (0.70-1.30); GLUCOSE 111 mg/dL (65-99); SODIUM 141 mmol/L (136-145); TOTAL PROTEIN 6.3 g/dL (6.4-8.2); URIC ACID 7.1 mg/dL (3.5-7.2); eGFR BLACK RACES > 60 (>60); eGFR NON BLACK RACES 58 (>60)
[2016-08-20 04:00] LABS: ANISOCYTOSIS SLIGHT; BAND NEUTROPHILS % 6 % (0-10); HYPOCHROMASIA SLIGHT; PLATELET MORPHOLOGY COMMENT NORMAL (NORMAL)
[2016-08-20] MEDS: FLAGYL TAB 500 MG PO SCH (06:31)
[2016-08-20] MEDS: ALBUMIN HUMAN 25%- 100ML 100 ML IV SCH (09:23)
[2016-08-20] MEDS: INVANZ INJ 1 GM VIAL 1 GM in NS 50 ML IV + SPIKE MINIBAG* 50 ML IV SCH (09:24)
[2016-08-20] MEDS: TOPROL XL PO SCH (09:24)
[2016-08-20] MEDS: ZOLOFT PO SCH (09:24)
[2016-08-20] MEDS: LASIX PO SCH (09:24)
[2016-08-20] MEDS: K-DUR TAB 20 MEQ PO SCH (09:24)
[2016-08-20] MEDS: MEGACE PO SCH (09:24)
[2016-08-20] MEDS: COLCRYS TAB 0.6 MG PO SCH (10:23)
[2016-08-20] MEDS: ZOFRAN INJ 4 MG VIAL IVP PRN (10:47)
--- NOTE | 2016-08-20 11:21 | RAD ---
HISTORY: Pain Study: Right knee series Comparison: None Findings: There is moderate joint space narrowing medially in the knee with no fracture or dislocation. There is mild narrowing of the patellofemoral joint. The patella is intact . There is a moderate suprapate llar effusion. The bones are osteopenic. IMPRESSION: Moderate osteoarthritic changes medially in the knee with no acute bony abnormality. Mild patellofemoral degenerative changes and a moderate suprapatellar effusion. Osteopenia. Reported By:
[2016-08-20 13:09] VITALS: BP 117/63
[2016-08-20] MEDS ORDERED: COUMADIN TAB 5 MG PO SCH (21:00)
== END 2016-08-20 14:30 ==
LOC: ER 13:34 → OBS 17:55
PROVIDERS: ADMIT Internal Medicine; ATTEND Internal Medicine
DX: N39.0 Urinary tract infection, site not specified (principal); N30.01 Acute cystitis with hematuria; R33.8 Other retention of urine; K59.09 Other constipation; E78.2 Mixed hyperlipidemia; I10 Essential (primary) hypertension; A04.7 Enterocolitis due to Clostridium difficile; I25.10 Atherosclerotic heart disease of native coronary artery without angina pectoris; B96.29 Other Escherichia coli [E. coli] as the cause of diseases classified elsewhere; Z86.711 Personal history of pulmonary embolism; Z85.46 Personal history of malignant neoplasm of prostate; Z79.1 Long term (current) use of non-steroidal anti-inflammatories (NSAID); R26.89 Other abnormalities of gait and mobility; R13.12 Dysphagia, oropharyngeal phase
CPT/HCPCS: 36415; 51702; 71010; 73564; 80053; 81001; 84550; 85025; 85610; 87040; 87045; 87086; 87088; 87186; 87205; 87427; 87493; 87899; 93970; 96365; 99284; A4216; A4222; G8978; G8979; G8987; G8988; G8996; G8997; P9047; S0179; G0378; J0290; J1335; J1580; J2270; J2405